=== PATIENT | female | born 1940 | race Caucasian/White ===

== ENCOUNTER → 2016-08-15 | Outpatient (CLI) | payer MEDICARE, OTHER ==
[~2016-08-15] MED LIST: FLUTI110I INH; IBUP200C PO; METO50TA11 PO; PRED-503 PO; THERH PO; VENTAER INH; ZITHTAB PO
[2016-08-15 11:34] LABS: HEMATOCRIT 43.8 % (35.0-46.0); MEAN CELL VOLUME 94.4 FL (80.0-100.0); MEAN CORPUSCULAR HEMOGLOBIN 32.4 PG (27.0-34.0); MEAN CORPUSCULAR HGB CONC 34.3 % (32.0-36.0); PLATELET COUNT 208 TH/MM3 (150-450); RED BLOOD COUNT 4.64 MIL/MM3 (4.00-5.30); RED CELL DISTRIBUTION WIDTH 14.6 % (11.6-17.2); REVIEW FLAG FINAL
[2016-08-15 11:35] LABS: BLOOD, URINE NEG (NEG); GLUCOSE,URINE NEG (NEG); KETONE, URINE NEG (NEG); MUCUS URINE FEW /lpf (OCC); NITRITE,URINE NEG (NEG); PH, URINE 6.5 (5.0-8.5); SQUAMOUS EPITHELIAL CELL URINE 2 /hpf (0-5); URINE COLOR YELLOW (YELLW/STRAW)
[2016-08-15 11:59] LABS: BICARBONATE 30.7 MEQ/L (21.0-32.0)
[2016-08-15 12:00] LABS: POTASSIUM 3.6 MEQ/L (3.5-5.1)
== END ==
LOC: CLAB 11:06
PROVIDERS: ATTEND Internal Medicine Interventional Cardiology
DX: I11.9 Hypertensive heart disease without heart failure (principal); R31.9 Hematuria, unspecified
CPT/HCPCS: 36415; 80048; 81001; 85027

== ENCOUNTER 2016-09-22 06:31 | Day surgery (SDC) | payer MEDICARE, OTHER ==
[~2016-09-22] VITALS: Ht 154.9 cm; Wt 76.5 kg
[~2016-09-22 06:31] MED LIST changes: -IBUP200C PO; -METO50TA11 PO; -THERH PO
[2016-09-22] MEDS ORDERED: SODIUM CHLOR 0.9% 1000 ML INJ 1,000 ML IV SCH ×2 (06:41→09:51)
[2016-09-22] MEDS ORDERED: ASPIRIN 325 MG TAB PO SCH (06:45)
[2016-09-22] MEDS ORDERED: MIDAZOLAM HCL 2 MG/2 ML VIAL IV SCH (06:45)
[2016-09-22] MEDS ORDERED: METO50TA11 PO (07:27)
[2016-09-22 07:29] VITALS: BP 181/96; PULSE 58; RESP 18; TEMP 97.6; O2SAT 93
[2016-09-22] MEDS ORDERED: NS 1000P @30 MLS/HR (KVO) IV SCH (07:30)
[2016-09-22] MEDS ORDERED: HEPARIN-NS/PF INJ 500 ML ONE (08:23)
[2016-09-22] MEDS ORDERED: MIDAZOLAM HCL 2 MG/2 ML VIAL ONE (08:26)
[2016-09-22] MEDS ORDERED: BACITRACIN OINT 0.9 GM PKT TOP ONE (10:00)
[2016-09-22] MEDS ORDERED: SODIUM CHLOR 0.9% 250 ML INJ 250 ML IV PRN (10:00)
[2016-09-22] MEDS ORDERED: MISC INFORMATION XX ONE (10:00)
[2016-09-22] MEDS ORDERED: SODIUM CHLORIDE 0.9% FLUSH 10 ML FLUSH IV FLUSH SCH (10:00)
[2016-09-22] MEDS ORDERED: ATROPINE SULFATE 1 MG/ML VIAL IV PRN (10:00)
[2016-09-22] MEDS ORDERED: IOHEXOL 350 MG/ML 100 ML BTL (for Cath Lab) OTHER ONE (13:44)
--- NOTE | 2016-09-24 11:28 | EKG ---
Date Performed: 09/22/2016 Time Performed: 07:38:16 PTAGE: 76 years EKG: Sinus bradycardia Possible anterior infarct - age undetermined Abnormal ECG PREVIOUS TRACING : 06/26/2016 14.42 DOCTOR: Randell Garrison Interpretating Date/Time 09/24/2016 11:26:00
--- NOTE | 2016-09-25 20:30 | MA ---
cc: ISABELA MATOS M.D. DATE September 22, 2016 PROCEDURE PERFORMED Left heart catheterization. Coronary arteriography. Left ventriculography. Right femoral angiography. Vascade arterial closure right femoral artery. PROCEDURE TECHNIQUE The patient was brought to the cardiac catheterization laboratory following informed consent. Initial thoughts of attempting a right radial approach were aborted due to a poor Lavell test response. The right groin was prepped and draped in usual sterile manner. Following 15 ml of 1% Xylocaine for local anesthesia in the right groin, a 6-[place] short introducer sheath was placed in the right femoral artery via modified Seldinger technique. Through this introducer sheath a 6-[place]an diagnostic catheter system including a JL-4, 3DRC, and straight pigtail were used for left heart study. Multiple projections of left and right coronaries were taken and left ventriculogram was done in the JAIN 32 projection only. At the completion of diagnostic procedure the catheters and introducer were removed and adequate hemostasis was maintained with the use of Vascade device in the right femoral artery. The patient tolerated procedure well. There were no immediate complications. HEMODYNAMIC RESULTS There was no gradient recorded across the aortic valve. Left ventricular end-diastolic pressure is 14 mmHg. For complete hemodynamic details please see accompanying paperwork. ANGIOGRAPHIC FINDINGS Left ventricle. The left ventricle demonstrates normal end systolic and diastolic dimensions. Overall left ventricular contractility is normal. Estimated left ventricular ejection fraction is 55%. No mitral regurgitation is seen. Aortic valve is trileaflet and opens normally. The aortic root and proximal portion of the ascending aorta are normal. LEFT CORONARY ARTERY Left main trunk: Left main trunk arises normally from the left coronary sinus. This is a short, large vessel. Normal. Left anterior descending artery: The LAD is a large-caliber vessel which is moderately tortuous. It gives rise to two major diagonal branches. There are mild luminal irregularities but no significant obstructive disease seen. Diagonal branches are moderate in caliber and normal. Circumflex: Nondominant. The main circumflex gives rise to a high lateral branch and a posterolateral branch. The main circumflex is large in caliber and has mild luminal irregularities. The high lateral branch is moderate to large in caliber and has a 10% stenosis in its mid segment. The post lateral branch is small in caliber and normal. RIGHT CORONARY ARTERY The right coronary artery: Dominant. Right coronary artery is a large-caliber vessel that gives rise to two right ventricular marginal branches, a posterior descending branch and posterior ventricular branch. The right coronary artery and its branches are normal. DIAGNOSES 1. Mild coronary atherosclerosis. 2. Normal left ventricular function. COMMENT/ RECOMMENDATIONS Angiographically, this patient does not demonstrate any hemodynamically significant coronary artery disease to explain her recently abnormal stress test results. She will be treated medically with risk factor modification program. Her blood pressure was mildly elevated on arrival to the cardiac catheterization laboratory and that will be followed closely and medications adjusted appropriately. I will discharge her home today when ambulatory and stable and see her back in the office in a few weeks for followup. MD JOSUE Kumar/AIDA /9:27 AM /8:14 PM MTDJames
[2016-12-16] MEDS ORDERED: THERH PO (09:55)
[2016-12-16] MEDS ORDERED: IBUP200C PO (09:57)
== END 2016-09-22 13:38 | disposition home or self-care (01) ==
LOC: HDOC 06:31 → HDIC 06:32 → HDOC 13:38
PROVIDERS: ATTEND Internal Medicine Interventional Cardiology
DX: I25.10 Atherosclerotic heart disease of native coronary artery without angina pectoris (principal); D15.1 Benign neoplasm of heart; I11.9 Hypertensive heart disease without heart failure; R94.39 Abnormal result of other cardiovascular function study; J44.9 Chronic obstructive pulmonary disease, unspecified; Z72.0 Tobacco use
CPT/HCPCS: 93005; 93458; C1760; C1769; C1893; G0269; J1644; J2250; J3010; Q9967

== ENCOUNTER 2017-03-04 10:26 | Inpatient (IN) | payer MEDICARE, OTHER ==
[~2017-03-04] VITALS: Ht 157.5 cm; Wt 84.5 kg
[2017-03-04] VITALS (15 sets, daily range): BP systolic 115–170; BP diastolic 58–96; PULSE 96–145; RESP 16–24; TEMP 98.1–98.6; O2SAT 87–99
[~2017-03-04 10:26] MED LIST changes: +ALBU0.08 NEB; +FURO1TAB62 PO; -PRED-503 PO; +THERH PO; -VENTAER INH; -ZITHTAB PO
--- NOTE | 2017-03-04 10:55 | PD ---
HPI Chief Complaint: Edema Time Seen by Provider: 10:48 Travel History International Travel<30 days: No Contact w/Intl Traveler<30days: No Traveled to known affect area: No History of Present Illness HPI The patient was seen and examined in the presence of the nurse. This patient complains of increased swelling in her legs. She occasionally is short of breath. She has moderately severe symptoms. Duration 2 weeks. She started on Lasix 2 weeks ago. Having any chest pain. No alleviating factors. She recently had bilateral leg Dopplers negative for DVT. PFSH Past Medical History Arthritis: Yes Asthma: No Autoimmune Disease: No Blood Disorders: No Anxiety: No Depression: No Heart Rhythm Problems: Yes Cancer: Yes (SKIN) Cardiovascular Problems: Yes High Cholesterol: No Chemotherapy: No Chest Pain: No Congestive Heart Failure: No COPD: No Cerebrovascular Accident: No Diabetes: No Diminished Hearing: No Endocrine: No Gastrointestinal Disorders: No GERD: No Glaucoma: Yes (BILAT) Genitourinary: No Headaches: No Hepatitis: No Hiatal Hernia: No Hypertension: No Immune Disorder: No Kidney Stones: No Musculoskeletal: Yes Neurologic: No Psychiatric: No Reproductive: No Respiratory: Yes (COPD) Integumentary: No Migraines: No Myocardial Infarction: No Radiation Therapy: No Renal Failure: No Seizures: No Sickle Cell Disease: No Sleep Apnea: No Thyroid Disease: No Ulcer: No Past Surgical History Abdominal Surgery: Yes (GALL BLADDER, 2 C-SECTIONS, TUBAL LIGATION) AICD: No Appendectomy: Yes Arteriovenous Shunt: No Cardiac Surgery: No Cholecystectomy: Yes Ear Surgery: No Endocrine Surgery: No Eye Surgery: Yes (CATARACTS REMOVED AND LENSE PLACEMENT BILATERAL 2004) Genitourinary Surgery: No Gynecologic Surgery: Yes (SEE ABOVE) Insulin Pump: No Joint Replacement: Yes (R KNEE REPLACEMENT, RIGHT HIP) Oral Surgery: No Pacemaker: No Thoracic Surgery: No Other Surgery: Yes Social History Alcohol Use: Yes (2 DRINKS A DAY) Tobacco Use: Yes (1 pack per day) Substance Use: No Allergies-Medications (Allergen,Severity, Reaction): Coded Allergies: codeine (Unverified Adverse Reaction, Severe, Nausea/Vomiting, 03/04/17) Reported Meds & Prescriptions Reported Meds & Active Scripts Active Albuterol Neb (Albuterol Sulfate) 2.5 Mg/3 Ml Neb 2.5 Mg NEB Q4HR NEB PRN Flovent Hfa 12 GM Inh (Fluticasone Propionate) 110 Mcg/Act Inh 2 Puff INH BID Lasix (Furosemide) 20 Mg Tab 20 Mg PO DAILY Reported Potassium Chloride ER (Potassium Chloride) 20 Meq Tab 20 Meq PO DAILY Therems-H (Multivitamin Hematinic Therapeutic) 1 Tab 1 Tab PO DAILY Review of Systems General / Constitutional: No: Fever Eyes: No: Visual changes HENT: No: Headaches Cardiovascular: Positive: Irregular Rhythm, Tachycardia, Edema, No: Chest Pain or Discomfort Respiratory: Positive: Shortness of Breath Gastrointestinal: No: Abdominal Pain Genitourinary: No: Dysuria Musculoskeletal: Positive: Edema, No: Pain Skin: No Rash Neurologic: No: Weakness Psychiatric: No: Depression Endocrine: No: Polydipsia Hematologic/Lymphatic: No: Easy Bruising Physical Exam Narrative GENERAL: Well-nourished, well-developed patient presented in rapid A. fib SKIN: Focused skin assessment reveals no rash and nodules. Skin is Warm and dry. HEAD: Atraumatic. Normocephalic. EYES: Pupils equal and round. No scleral icterus. No injection or drainage. ENT: No nasal bleeding or discharge. Mucous membranes pink and moist. NECK: Trachea midline. No JVD. CARDIOVASCULAR: Irregularly irregular rhythm. No murmur appreciated. Heart rate 150 RESPIRATORY: No accessory muscle use. Right basilar crackles are prominent, to a much lesser degree some in the left base GASTROINTESTINAL: Abdomen soft, non-tender, nondistended. Hepatic and splenic margins not palpable. MUSCULOSKELETAL: No obvious deformities. No clubbing. No cyanosis. Bilateral symmetric pitting edema of the feet ankles and lower legs to the mid thigh NEUROLOGICAL: Awake and alert. No obvious cranial nerve deficits. Motor grossly within normal limits. Normal speech. PSYCHIATRIC: Appropriate mood and affect; insight and judgment normal. Data Data Last Documented VS Vital Signs Date Time Temp Pulse Resp B/P (MAP) Pulse Ox O2 Delivery O2 Flow Rate FiO2 03/04/17 10:32 98.3 145 18 170/96 (120) 94 Orders Orders Iv Access Insert/Monitor (03/04/17 10:48) Complete Blood Count With Diff (03/04/17 10:48) Comprehensive Metabolic Panel (03/04/17 10:48) B-Type Natriuretic Peptide (03/04/17 10:48) Chest, Single Ap (03/04/17 ) Electric Vehicle Electrician / Telemetry [id number] (03/04/17 10:48) Electrocardiogram (03/04/17 ) Furosemide Inj (Lasix Inj) (03/04/17 11:00) Diltiazem Inj (Cardizem Inj) (03/04/17 11:00) Prothrombin Time / Inr (Pt) (03/04/17 10:55) Act Partial Throm Time (Ptt) (03/04/17 10:55) Diltiazem Inj (Cardizem Inj) (03/04/17 12:30) Admit Order (Ed Use Only) (03/04/17 12:25) Labs Laboratory Tests Test 03/04/17 11:06 White Blood Count 5.7 TH/MM3 Red Blood Count 4.79 MIL/MM3 Hemoglobin 15.3 GM/DL Hematocrit 46.9 % Mean Corpuscular Volume 97.8 FL Mean Corpuscular Hemoglobin 31.9 PG Mean Corpuscular Hemoglobin Concent 32.6 % Red Cell Distribution Width 15.1 % Platelet Count 176 TH/MM3 Mean Platelet Volume 7.9 FL Neutrophils (%) (Auto) 67.6 % Lymphocytes (%) (Auto) 16.5 % Monocytes (%) (Auto) 14.0 % Eosinophils (%) (Auto) 0.4 % Basophils (%) (Auto) 1.5 % Neutrophils # (Auto) 3.9 TH/MM3 Lymphocytes # (Auto) 0.9 TH/MM3 Monocytes # (Auto) 0.8 TH/MM3 Eosinophils # (Auto) 0.0 TH/MM3 Basophils # (Auto) 0.1 TH/MM3 CBC Comment DIFF FINAL Differential Comment Prothrombin Time 13.6 SEC Prothromb Time International Ratio 1.2 RATIO Activated Partial Thromboplast Time 31.6 SEC Blood Urea Nitrogen 15 MG/DL Creatinine 0.72 MG/DL Random Glucose 112 MG/DL Total Protein 6.4 GM/DL Albumin 2.8 GM/DL Calcium Level 8.6 MG/DL Alkaline Phosphatase 97 U/L Aspartate Amino Transf (AST/SGOT) 30 U/L Alanine Aminotransferase (ALT/SGPT) 19 U/L Total Bilirubin 1.4 MG/DL Sodium Level 140 MEQ/L Potassium Level 3.5 MEQ/L Chloride Level 104 MEQ/L Carbon Dioxide Level 30.4 MEQ/L Anion Gap 6 MEQ/L Estimat Glomerular Filtration Rate 78 ML/MIN B-Type Natriuretic Peptide 494 PG/ML MDM Medical Decision Making Medical Screen Exam Complete: Yes Emergency Medical Condition: Yes Medical Record Reviewed: Yes Differential Diagnosis New-onset A. fib, A. fib with RVR, congestive heart failure, pulmonary edema, pleural effusion Narrative Course I have reviewed the patient's electronic medical record. Reviewed her August 2016 heart catheterization which showed extremely minimal CAD IV placed I gave her 20 mg IV Cardizem for rate control Extended cardiac monitoring confirms A. fib with rate around 1 4150 I reviewed her EKG which shows a rapid A. fib at 132 with 1 PVC I gave her 80 mg IV Lasix CBC is normal Metabolic profile is normal LFTs are normal BNP is mildly elevated in the 400 range Coagulation studies are normal I reviewed her chest x-ray which shows right base pleural effusion with some mild pulmonary edema On recheck her heart rate is still 130s I've initiated Cardizem drip for rate control Patient will require admission for telemetry monitoring and IV Cardizem drip for rate control and diuresis I placed a call the hospitalist to discuss Critical Care Narrative Aggregate critical care time was 36 minutes. Time to perform other separately billable procedures was not included in the critical care time. My time did not include minutes spent treating any other patients simultaneously or on activities that did not directly contribute to the patient's treatment. The services I provided to this patient were to treat and/or prevent clinically significant deterioration that could result in: Cardiopulmonary arrest, cardiac arrhythmia, cardiogenic shock, myocardial damage I provided critical care services requiring my management, as noted below: Chart data review, documentation time, medication orders and management, vital sign assessments/reviewing monitor data, ordering and reviewing lab tests, ordering and interpreting/reviewing x-rays and diagnostic studies, care of the patient and discussion of the patient with the admitting physicians. Diagnosis Primary Impression: New onset atrial fibrillation Additional Impressions: Atrial fibrillation with RVR Congestive heart failure with cardiomyopathy Admitting Information Admitting Physician Requests: Admit Josh Ace MD Mar 04, 2017 10:55
[2017-03-04] MEDS ORDERED: POTA-163 PO (10:58)
[2017-03-04] MEDS ORDERED: FUROSEMIDE 100 MG/10 ML VIAL IV PUSH ONE (11:00)
[2017-03-04] MEDS ORDERED: DILTIAZEM HCL 25 MG/5 ML VIAL IV ONE (11:00)
[2017-03-04 11:15] LABS: AUTOMATED NEUTROPHIL # 3.9 TH/MM3 (1.8-7.7); BASOPHIL # 0.1 TH/MM3 (0-0.2); BASOPHIL % 1.5 % (0.0-2.0); EOSINOPHIL % 0.4 % (0.0-4.0); HEMATOCRIT 46.9 % (35.0-46.0); HEMO FLAGS DIFF FINAL; LYMPH % 16.5 % (9.0-44.0); LYMPHOCYTE # 0.9 TH/MM3 (1.0-4.8); MEAN CELL VOLUME 97.8 FL (80.0-100.0); MEAN CORPUSCULAR HEMOGLOBIN 31.9 PG (27.0-34.0); MEAN CORPUSCULAR HGB CONC 32.6 % (32.0-36.0); NEUT % 67.6 % (16.0-70.0); PLATELET COUNT 176 TH/MM3 (150-450); RED BLOOD COUNT 4.79 MIL/MM3 (4.00-5.30); RED CELL DISTRIBUTION WIDTH 15.1 % (11.6-17.2); WHITE BLOOD COUNT 5.7 TH/MM3 (4.0-11.0)
[2017-03-04 11:22] LABS: CHLORIDE 104 MEQ/L (98-107); POTASSIUM 3.5 MEQ/L (3.5-5.1); SODIUM (NA) 140 MEQ/L (136-145)
[2017-03-04 11:26] LABS: ANION GAP 6 MEQ/L (5-15); BICARBONATE 30.4 MEQ/L (21.0-32.0); BLOOD UREA NITROGEN 15 MG/DL (7-18)
[2017-03-04 11:27] LABS: APTT (PATIENT) 31.6 SEC (24.3-30.1); INTERNATIONAL NORMALIZED RATIO 1.2 RATIO; PROTHROMBIN TIME - PATIENT 13.6 SEC (9.8-11.6)
--- NOTE | 2017-03-04 11:27 | RADRPT ---
EXAM DATE/TIME: 03/04/2017 11:13 [facility] COMPARISON: CHEST SINGLE AP, June 26, 2016, 14:31. INDICATIONS : Short of breath, cough MEDICAL HISTORY : Chronic obstructive pulmonary disease. SURGICAL HISTORY : None. ENCOUNTER: Initial ACUITY: 1 day PAIN SCORE: 0/10 LOCATION: Bilateral chest FINDINGS: There is cardiomegaly. A small right effusion is noted tracking into the minor fissure. There is patc hy right basilar airspace disease or atelectasis. Left lung is clear. Degenerative changes of the spi ne. CONCLUSION: Small right effusion and basilar airspace disease. Jorge Carrillo MD on March 04, 2017 at 11:25 Board Certified Radiologist. This report was verified electronically.
[2017-03-04 11:29] LABS: ALT (GPT) 19 U/L (10-53)
[2017-03-04 11:30] LABS: AST (GOT) 30 U/L (15-37); GLOMERULAR FILTRATION RATE 78 ML/MIN (>89)
[2017-03-04 11:31] LABS: TOTAL BILIRUBIN ADULT 1.4 MG/DL (0.2-1.0)
[2017-03-04 11:32] LABS: ALKALINE PHOSPHATASE 97 U/L (45-117)
[2017-03-04] MEDS ORDERED: NALOXONE HCL 0.4 MG/ML AMP IV PRN (12:30)
[2017-03-04] MEDS ORDERED: SODIUM CHLORIDE 0.9% FLUSH 10 ML FLUSH IV FLUSH PRN (12:30)
[2017-03-04] MEDS ORDERED: DILTIAZEM INJ 125 MG in SODIUM CHLORIDE 0.9% INJ 100 ML IV PRN (12:30)
--- NOTE | 2017-03-04 13:17 | HHI.HP ---
[facility]ician KARINA Doyle Admission Diagnosis new onset afib with RVR, CHF exac Diagnoses: Chief Complaint: Edema Travel History International Travel<30 Days: No Contact w/Intl Traveler <30 Da: No Traveled to Known Affected Are: No History of Present Illness This patient is a very pleasant 77-year-old female with a history of hypertension who has had increasing edematous changes of the lower extremities for the last 2 weeks. She has had increased work of breathing and orthopnea. Over the last 24-48 hours she did notice some increasing erythematous changes on her lower extremities and blistered area on her right middle toe. She had no fevers or chills. She notes no trevon chest pain. She has come to the emergency room for further evaluation and did receive some Lasix. At that point she said the swelling went down she could breathe better. On telemetry she has been known to have atrial fibrillation with rapid ventricular response. This is new and the patient has never had knowledge of any arrhythmias. She does follow with her filling technician and recently had an abnormal stress test followed by a cardiac catheterization which was normal. She has been admitted to the hospital for further evaluation of this new arrhythmia Review of Systems Constitutional: DENIES: Diaphoretic episodes, Fatigue, Fever, Weight gain, Weight loss, Chills, Dizziness, Change in appetite, Night Sweats Endocrine: DENIES: Abnorml menstrual pattern, Heat/cold intolerance, Polydipsia , Polyuria, Polyphagia Eyes: DENIES: Blurred vision, Diplopia, Eye inflammation, Eye pain, Vision loss , Photosensitivity, Double Vision Ears, nose, mouth, throat: DENIES: Tinnitus, Hearing loss, Vertigo, Nasal discharge, Oral lesions, Throat pain, Hoarseness, Ear Pain, Running Nose, Epistaxis, Sinus Pain, Toothache, Odynophagia Respiratory: DENIES: Apneas, Cough, Snoring, Wheezing, Hemoptysis, Sputum production, Shortness of breath Cardiovascular: COMPLAINS OF: Lower Extremity Edema, DENIES: Chest pain, Palpitations, Syncope, Dyspnea on Exertion, PND, Orthopnea, Claudication Gastrointestinal: DENIES: Abdominal pain, Black stools, Bloody stools, Constipation, Diarrhea, Nausea, Vomiting, Difficulty Swallowing, Anorexia Genitourinary: DENIES: Abnormal vaginal bleeding, Dysmenorrhea, Dyspareunia, Sexual dysfunction, Urinary frequency, Urinary incontinence, Urgency, Hematuria , Dysuria, Nocturia, Vaginal discharge Musculoskeletal: DENIES: Joint pain, Muscle aches, Stiffness, Joint Swelling, Back pain, Neck pain Integumentary: DENIES: Abnormal pigmentation, Pruritus, Rash, Nail changes, Breast masses, Breast skin changes, Nipple discharge Hematologic/lymphatic: DENIES: Bruising, Lymphadenopathy Immunologic/allergic: DENIES: Eczema, Urticaria Neurologic: DENIES: Abnormal gait, Headache, Localized weakness, Paresthesias, Seizures, Speech Problems, Tremor, Poor Balance Psychiatric: DENIES: Anxiety, Confusion, Mood changes, Depression, Hallucinations, Agitation, Suicidal Ideation, Homicidal Ideation, Delusions Past Family Social History Past Medical History Htn COPD Past Surgical History GB Tubal ligation Reported Medications Reviewed in the EMR Allergies: Coded Allergies: codeine (Unverified Adverse Reaction, Severe, Nausea/Vomiting, 03/04/17) Active Ordered Medications Reviewed in the EMR Family History Mom had heart issues and at 78, brother has diabetes, father's history is unknown Social History Patient smokes half a pack a day, alcohol occasionally, lives with her boyfriend Physical Exam Vital Signs Vital Signs Date Time Temp Pulse Resp B/P (MAP) Pulse Ox O2 Delivery O2 Flow Rate FiO2 03/04/17 10:32 98.3 145 18 170/96 (120) 94 Physical Exam GENERAL: This is a well-nourished, well-developed patient, in no apparent distress. SKIN: No rashes, ecchymoses or lesions. Cool and dry. HEAD: Atraumatic. Normocephalic. No temporal or scalp tenderness. EYES: Pupils equal round and reactive. Extraocular motions intact. No scleral icterus. No injection or drainage. ENT: Nose without bleeding, purulent drainage or septal hematoma. Throat without erythema, tonsillar hypertrophy or exudate. Uvula midline. Airway patent. NECK: Trachea midline. No JVD or lymphadenopathy. Supple, nontender, no meningeal signs. CARDIOVASCULAR: Afib with Rapid ventricular rate without murmurs, gallops, or rubs. RESPIRATORY: Clear to auscultation. Breath sounds equal bilaterally. No wheezes , rales, or rhonchi. GASTROINTESTINAL: Abdomen soft, non-tender, nondistended. No hepato-splenomegaly , or palpable masses. No guarding. MUSCULOSKELETAL: Extremities without clubbing, cyanosis, or edema. No joint tenderness, effusion, or edema noted. No calf tenderness. Negative Homans sign bilaterally. NEUROLOGICAL: Awake and alert. Cranial nerves II through XII intact. Motor and sensory grossly within normal limits. Five out of 5 muscle strength in all muscle groups. Normal speech. Laboratory Laboratory Tests Test 03/04/17 11:06 White Blood Count 5.7 Red Blood Count 4.79 Hemoglobin 15.3 Hematocrit 46.9 Mean Corpuscular Volume 97.8 Mean Corpuscular Hemoglobin 31.9 Mean Corpuscular Hemoglobin Concent 32.6 Red Cell Distribution Width 15.1 Platelet Count 176 Mean Platelet Volume 7.9 Neutrophils (%) (Auto) 67.6 Lymphocytes (%) (Auto) 16.5 Monocytes (%) (Auto) 14.0 Eosinophils (%) (Auto) 0.4 Basophils (%) (Auto) 1.5 Neutrophils # (Auto) 3.9 Lymphocytes # (Auto) 0.9 Monocytes # (Auto) 0.8 Eosinophils # (Auto) 0.0 Basophils # (Auto) 0.1 CBC Comment DIFF FINAL Differential Comment Prothrombin Time 13.6 Prothromb Time International Ratio 1.2 Activated Partial Thromboplast Time 31.6 Blood Urea Nitrogen 15 Creatinine 0.72 Random Glucose 112 Total Protein 6.4 Albumin 2.8 Calcium Level 8.6 Alkaline Phosphatase 97 Aspartate Amino Transf (AST/SGOT) 30 Alanine Aminotransferase (ALT/SGPT) 19 Total Bilirubin 1.4 Sodium Level 140 Potassium Level 3.5 Chloride Level 104 Carbon Dioxide Level 30.4 Anion Gap 6 Estimat Glomerular Filtration Rate 78 B-Type Natriuretic Peptide 494 Thyroid Stimulating Hormone 3rd Gen 3.550 Result Diagram: 03/04/17 1106 03/04/17 1106 Imaging Last Impressions Chest X-Ray 03/04/17 0000 Signed Impressions: Service Date/Time: Saturday, March 04, 2017 11:13 - CONCLUSION: Small right effusion and basilar airspace disease. MD Zeeshan Clark VTE Risk Assessment Zeeshan VTE Risk Assessment: Mod/High Risk (score >= 2) Caprini Risk Assessment Model Point Value = 1 Point Value = 2 Point Value = 3 Point Value = 5 Age 41-60 Minor surgery BMI > 25 kg/m2 Swollen legs Varicose veins or History of unexplained or recurrent spontaneous Oral contraceptives or hormone replacement Sepsis (< 1 month) Serious lung disease, including pneumonia (< 1 month) Abnormal pulmonary function Acute myocardial infarction Congestive heart failure (< 1 month) History of inflammatory bowel disease Medical patient at bed rest Age 61-74 Arthroscopic surgery Major open surgery (> 45 min) Laparoscopic surgery (> 45 min) Malignancy Confined to bed (> 72 hours) Immobilizing plaster cast Central venous access Age >= 75 History of VTE Family history of VTE Factor V Leiden Prothrombin [id number] Lupus anticoagulant Anticardiolipin antibodies Elevated serum homocysteine Heparin-induced thrombocytopenia Other congenital or acquired thrombophilia Stroke (< 1 month) Elective arthroplasty Hip, pelvis, or leg fracture Acute spinal cord injury (< 1 month) Prophylaxis Regimen Total Risk Factor Score Risk Level Prophylaxis Regimen 0-1 Low Early ambulation 2 Moderate Order ONE of the following: *Sequential Compression Device (SCD) *Heparin 5000 units SQ BID 3-4 Higher Order ONE of the following medications: *Heparin 5000 units SQ TID *Enoxaparin/Lovenox 40 mg SQ daily (WT < 150 kg, CrCl > 30 mL/min) *Enoxaparin/Lovenox 30 mg SQ daily (WT < 150 kg, CrCl > 10-29 mL/min) *Enoxaparin/Lovenox 30 mg SQ BID (WT < 150 kg, CrCl > 30 mL/min) AND/OR *Sequential Compression Device (SCD) 5 or more Highest Order ONE of the following medications: *Heparin 5000 units SQ TID (Preferred with Epidurals) *Enoxaparin/Lovenox 40 mg SQ daily (WT < 150 kg, CrCl > 30 mL/min) *Enoxaparin/Lovenox 30 mg SQ daily (WT < 150 kg, CrCl > 10-29 mL/min) *Enoxaparin/Lovenox 30 mg SQ BID (WT < 150 kg, CrCl > 30 mL/min) AND *Sequential Compression Device (SCD) Assessment and Plan Problem List: (1) Atrial fibrillation with RVR ICD Code: I48.91 - Unspecified atrial fibrillation Status: Acute Plan: New onset Rate control, lovenox, IV Cardiazem (2) Fluid overload ICD Code: E87.70 - Fluid overload, unspecified Plan: Diureses Wt daily (3) Cellulitis ICD Code: L03.90 - Cellulitis, unspecified Plan: Of bilateral lower marquis is We'll add Keflex Assessment and Plan Plan of care to be determined by Hospital course Code Status DNR Discussed Condition With Patient, TAVON Moseley Physician Certification 2 Midnight Certification Type: Admission for Inpatient Services Order for Inpatient Services The services are ordered in accordance with Medicare regulations or non- Medicare payer requirements, as applicable. In the case of services not specified as inpatient-only, they are appropriately provided as inpatient services in accordance with the 2-midnight benchmark. Estimated LOS (days): 2 2 days is the estimated time the patient will need to remain in the hospital, assuming treatment plan goals are met and no additional complications. Post-Hospital Plan: Home Batsheva Iglesias MD Mar 04, 2017 13:17
[2017-03-04] MEDS: CEPHALEXIN MONOHYDRATE 500 MG CAP PO SCH ×2 (15:47→21:26)
[2017-03-04] MEDS: ENOXAPARIN SODIUM 80 MG/0.8 ML SYRINGE SQ SCH (15:48)
--- NOTE | 2017-03-04 17:34 | EKG ---
Date Performed: 03/04/2017 Time Performed: 10:53:48 PTAGE: 77 years EKG: ATRIAL FIBRILLATION WITH RAPID VENTRICULAR RESPONSE LOW QRS VOLTAGE IN PRECORDIAL LEADS ANT EROSEPTAL MYOCARDIAL INFARCTION ABNORMAL ECG INTERPRETATION BASED ON A DEFAULT AGE OF 39 YEARS NO PREVIOUS TRACING DOCTOR: Prosper Joseph Interpretating Date/Time 03/04/2017 17:33:15
[2017-03-04] MEDS: RESP: ALBUTEROL 2.5 MG/IPRATROPIUM 0.5 MG NEB (SCH) NEB ×2 (17:45→21:14)
[2017-03-04] MEDS ORDERED: RESP: ALBUTEROL 2.5 MG/IPRATROPIUM 0.5 MG NEB (PRN) NEB (17:45)
--- NOTE | 2017-03-04 18:38 | ECHRPT ---
Indication: ATRIAL FIBRILLATION CONCLUSIONS Normal left ventricular size. Wall thickness is normal. The left ventricular systolic function is mildly reduced with an estimated ejection fraction in the range of 45- 50%. No regional wall motion abnormalities are present. This study was not technically sufficient to allow for evaluation of left ventricular diastolic func tion. The left atrial size is moderately dilated. The right atrial size is ubuf-if-ejtrplnber dilated. There is a 2.4 cm2 mobile clot in the right atrial side closer to the atrial septum.No atrial level shunt is demonstrated by color flow Doppler interrogation. Moderate mitral valve regurgitation. No mitral valve stenosis. Aortic valve sclerosis is present. No aortic valve regurgitation. No aortic valve stenosis. There is mild to moderate tricuspid valve regurgitation. There is estimated moderate pulmonary hypertension present (range 50-60 mmHg). The pulmonary valve is not well visualized. The inferior vena cava (IVC) is normal in size. There is greater than 50% respiratory change in dimension of the inferior vena cava (normal). BP: 138 / 68 HR: 110 Rhythm: Atrial fibrillation MEASUREMENTS (Male / Female) Normal Values Technical Quality:Fair 2D ECHO LV Diastolic Diameter PLAX 5.3 cm 4.2 - 5.9 / 3.9 - 5.3 cm LV Systolic Diameter PLAX 4.2 cm IVS Diastolic Thickness 0.9 cm 0.6 - 1.0 / 0.6 - 0.9 cm LVPW Diastolic Thickness 0.9 cm 0.6 - 1.0 / 0.6 - 0.9 cm LV Relative Wall Thickness 0.3 LVOT Diameter 2.2 cm Aortic Root Diameter 3.0 cm LA Systolic Diameter LX 4.2 cm 3.0 - 4.0 / 2.7 - 3.8 cm LA Volume Index 42.6 cm/m 16 - 28 cm/m M-MODE AV Cusp Separation MM 1.6 cm DOPPLER AV Peak Velocity 140.7 cm/s AV Peak Gradient 7.9 mmHg AV Mean Gradient 4.3 mmHg AV Velocity Time Integral 20.3 cm LVOT Peak Velocity 81.8 cm/s LVOT Peak Gradient 2.7 mmHg LVOT Velocity Time Integral 13.0 cm LVOT Cardiac Index 2757.5 cm/minm AV Area Cont Eq vti 2.4 cm AV Area Cont Eq pk 2.2 cm Mitral E Point Velocity 111.1 cm/s LV E' Lateral Velocity 10.3 cm/s Mitral E to LV E' Lateral Ratio 10.8 LV E' Septal Velocity 6.0 cm/s Mitral E to LV E' Septal Ratio 18.4 TR Peak Velocity 334.0 cm/s TR Peak Gradient 44.6 mmHg PV Peak Velocity 56.4 cm/s PV Peak Gradient 1.3 mmHg FINDINGS LEFT VENTRICLE Normal left ventricular size. Wall thickness is normal. The left ventricular systolic function is mildly reduced with an estimated ejection fraction in the range of 45- 50%. No regional wall motion abnormalities are present. This study was not technically sufficient to allow for evaluation of left ventricular diastolic func tion. RIGHT VENTRICLE Normal right ventricular size and systolic function. LEFT ATRIUM The left atrial size is moderately dilated. RIGHT ATRIUM The right atrial size is yqhq-it-kluvlvvzbg dilated. There is a 2.4 cm2 mobile clot in the right atrial side closer to the atrial septum. ATRIAL SEPTUM No atrial level shunt is demonstrated by color flow Doppler interrogation. AORTA The aortic root and proximal ascending aorta are normal in size on limited imaging. MITRAL VALVE Structurally normal mitral valve. Moderate mitral valve regurgitation. No mitral valve stenosis. AORTIC VALVE Trileaflet aortic valve. Aortic valve sclerosis is present. No aortic valve regurgitation. No aortic valve stenosis. TRICUSPID VALVE Structurally normal tricuspid valve. There is mild to moderate tricuspid valve regurgitation. There is estimated moderate pulmonary hypertension present (range 50-60 mmHg). PULMONARY VALVE The pulmonary valve is not well visualized. VESSELS The inferior vena cava (IVC) is normal in size. There is greater than 50% respiratory change in dimension of the inferior vena cava (normal). PERICARDIUM No pericardial effusion. Michael Aviles MD, FACC, [facility] [place] (Electronically Signed) Final Date:04 March 2017 18:36
[2017-03-04] MEDS ORDERED: SENNOSIDES 8.6 MG TAB PO PRN (21:00)
[2017-03-04] MEDS: SODIUM CHLORIDE 0.9% FLUSH 10 ML FLUSH IV FLUSH SCH (21:26)
[2017-03-05] VITALS (20 sets, daily range): BP systolic 108–137; BP diastolic 51–85; PULSE 88–118; RESP 16–27; TEMP 96.9–99.6; O2SAT 80–100
[2017-03-05] MEDS: ENOXAPARIN SODIUM 80 MG/0.8 ML SYRINGE SQ SCH ×2 (01:19→14:03)
[2017-03-05] MEDS: RESP: ALBUTEROL 2.5 MG/IPRATROPIUM 0.5 MG NEB (SCH) NEB ×4 (03:11→20:56)
[2017-03-05] MEDS: CEPHALEXIN MONOHYDRATE 500 MG CAP PO SCH ×3 (05:52→21:34)
[2017-03-05 06:24] LABS: AUTOMATED NEUTROPHIL # 4.4 TH/MM3 (1.8-7.7); BASOPHIL % 0.6 % (0.0-2.0); EOSINOPHIL # 0.1 TH/MM3 (0-0.4); EOSINOPHIL % 0.8 % (0.0-4.0); HEMO FLAGS DIFF FINAL; LYMPH % 14.4 % (9.0-44.0); LYMPHOCYTE # 0.9 TH/MM3 (1.0-4.8); MEAN CELL VOLUME 97.7 FL (80.0-100.0); MEAN CORPUSCULAR HEMOGLOBIN 31.9 PG (27.0-34.0); MEAN CORPUSCULAR HGB CONC 32.7 % (32.0-36.0); MONO % 14.6 % (0.0-8.0); NEUT % 69.6 % (16.0-70.0); PLATELET COUNT 156 TH/MM3 (150-450); RED BLOOD COUNT 4.61 MIL/MM3 (4.00-5.30); WHITE BLOOD COUNT 6.3 TH/MM3 (4.0-11.0)
[2017-03-05] MEDS: DILTIAZEM-CD 120 MG CAP ER PO SCH (09:50)
[2017-03-05] MEDS: SODIUM CHLORIDE 0.9% FLUSH 10 ML FLUSH IV FLUSH SCH ×2 (09:52→20:41)
--- NOTE | 2017-03-05 11:23 | HHI.PR ---
Subjective Remarks Patient seen in room. Patient with nonsustained V. tach on telemetry in the setting of new onset A. fib. Some hypoxemia overnight in the 80s. Patient has diuresed quite a bit. Her edema is better. She feels well and is out of the bed to chair today. Objective Vitals Vital Signs Date Time Temp Pulse Resp B/P (MAP) Pulse Ox O2 Delivery O2 Flow Rate FiO2 03/05/17 10:48 99 Nasal Cannula 4.00 03/05/17 09:00 75 Nasal Cannula 5.00 90 03/05/17 09:00 108 25 89 03/05/17 08:00 Nasal Cannula 5.00 03/05/17 08:00 106 27 91 03/05/17 05:58 102 22 124/67 (86) 80 03/05/17 05:30 100 21 96 03/05/17 04:47 104 24 122/66 (84) 96 03/05/17 04:30 100 21 93 03/05/17 04:00 99.6 94 20 118/59 (78) 98 03/05/17 04:00 96 03/05/17 04:00 94 20 89 03/05/17 03:47 98 21 118/59 (78) 92 03/05/17 03:00 102 18 97 03/05/17 02:47 96 18 112/54 (73) 98 03/05/17 02:00 88 18 92 03/05/17 01:47 90 19 114/51 (72) 94 03/05/17 01:00 94 19 95 03/05/17 00:47 96 20 114/57 (76) 94 03/05/17 00:00 105 03/05/17 00:00 102 18 97 03/05/17 00:00 99.6 102 18 115/58 (77) 97 03/04/17 23:47 100 21 115/58 (77) 97 03/04/17 23:04 Nasal Cannula 5.00 Humidified 03/04/17 23:00 108 19 87 03/04/17 22:47 104 20 134/62 (86) 90 03/04/17 22:00 106 18 95 03/04/17 21:47 106 23 143/64 (90) 96 03/04/17 21:15 95 Nasal Cannula 2.00 03/04/17 21:00 104 18 97 03/04/17 20:05 102 24 151/79 (103) 03/04/17 20:00 96 19 03/04/17 20:00 98.1 113 22 151/79 (103) 99 03/04/17 20:00 104 03/04/17 20:00 Nasal Cannula 2.00 03/04/17 19:17 108 23 149/87 (107) 03/04/17 19:00 104 21 03/04/17 16:20 98.6 123 19 152/91 (111) 97 03/04/17 15:00 116 03/04/17 14:29 03/04/17 14:16 110 156/86 03/04/17 13:11 130 16 138/68 (91) 95 Room Air I/O 03/04/17 03/04/17 03/04/17 03/05/17 03/05/17 03/05/17 07:00 15:00 23:00 07:00 15:00 23:00 Intake Total 170 ml 240 ml Output Total 1500 ml 2225 ml 500 ml Balance -1500 ml -2055 ml -260 ml Intake Oral 150 ml 240 ml IV Total 20 ml 0 ml Output Urine Total 1500 ml 2225 ml 500 ml # Voids 2 # Bowel Movements 1 Result Diagram: 03/05/17 0550 03/04/17 1106 Imaging Last Impressions Chest X-Ray 03/04/17 0000 Signed Impressions: Service Date/Time: Saturday, March 04, 2017 11:13 - CONCLUSION: Small right effusion and basilar airspace disease. Jorge Carrillo MD Objective Remarks GENERAL: This is a well-nourished, well-developed patient, in no apparent distress. CARDIOVASCULAR: Atrial fibrillation without murmurs, gallops, or rubs. RESPIRATORY: Clear to auscultation. Breath sounds equal bilaterally. No wheezes , rales, or rhonchi. GASTROINTESTINAL: Abdomen soft, non-tender, nondistended. Normal active bowel sounds MUSCULOSKELETAL: Extremities without clubbing, cyanosis, +2 edema NEURO: Alert & Oriented x4 to person, place, time, situation. Moves all ext x4 A/P Problem List: (1) Atrial fibrillation with RVR ICD Code: I48.91 - Unspecified atrial fibrillation Status: Acute Plan: New onset Rate control, lovenox, IV Cardiazem transition to oral Follow up cardiology Correct electrolytes as needed (2) Fluid overload ICD Code: E87.70 - Fluid overload, unspecified Plan: Diureses Echo pending Wt daily (3) Cellulitis ICD Code: L03.90 - Cellulitis, unspecified Plan: Continue Keflex for surveillance of bilateral Batsheva Francis MD Mar 05, 2017 11:23
[2017-03-05 11:34] LABS: POTASSIUM 3.2 MEQ/L (3.5-5.1)
[2017-03-05 11:37] LABS: BICARBONATE 35.3 MEQ/L (21.0-32.0)
--- NOTE | 2017-03-05 16:21 | MB ---
cc: MARIAJOSE DASILVA M.D., MARK B. M.D. Corrected Copy: 03/09/17 DATE OF CONSULTATION: 03/05/2017. HISTORY OF PRESENT ILLNESS: Thank you, Dr. Iglesias, for asking us to see this very pleasant 77-year-old female who presents with a history of hypertension and who has had increasing edematous changes of the lower extremities for the last two weeks. She has been diuresed and her shortness of breath has significantly improved as has her edematous legs. She feels much better. Her chest x-ray showed a small right basilar effusion and basilar airspace disease. Her Electrocardiogram reportedly showed atrial fibrillation with rapid ventricular response on admission. 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 The patient is a DNR so whether this should be operated on or left alone can be decided by her regular physician, Dr. Cosme. PAST MEDICAL HISTORY: 1. COPD. 2. Hypertension. 3. Gallbladder disease. 4. . 5. Tubal ligation. ALLERGIES: 1. CODEINE. FAMILY HISTORY: The family history is positive for the mother having heart issues and at 78. A brother had diabetes. The father's history is unknown. SOCIAL HISTORY: She smoked half-a-pack per day. Alcohol occasionally. Lives with her boyfriend. PHYSICAL EXAMINATION: VITAL SIGNS: On examination, her pulse was 106, respirations 22, blood pressure 108/65. HEAD, EYES, EARS, NOSE, THROAT: Eyes show no xanthelasma. Mouth shows no cyanosis or pallor. NECK: No jugular venous distention. HEART: She had two heart sounds. Soft systolic murmur. CHEST: Scattered wheezes, especially the left upper lobe. ABDOMEN: Abdomen soft. EXTREMITIES: Legs revealed bilateral redness consistent with mild cellulitis. PSYCHIATRIC: No suicidal ideation. Oriented to time and place. ASSESSMENT AND PLAN: 1. 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 Will need further workup of the myxoma as per Dr. Cosme. The patient has an elevated BNP at 495 rate has not been done. The patient is also a DNR so it would be Dr. Cosme's judgment whether to proceed with further workup or leave the myxoma alone. 2. Congestive heart failure. She has significantly improved. This appears to be primarily a right-sided heart failure. There is fluid overload which could be secondary to the atrial fibrillation with rapid ventricular response. We will continue to try to manage the fluid overload and heart rate with Diltiazem. 3. Atrial fibrillation. Will give coumadin anticoagulation or as per Dr. Eagle Cosme, her regular hypo dipper. For now, she is on Lovenox 80 milligrams subcutaneous q. 12 with a normal creatinine. 4. Congestive heart failure. This is being well-treated with the Bumex. She has had significant diuresis. Her edema is improving. She will continue on this. 5. COPD. She continues on albuterol and appears to be improving. 6. Cellulitis of the skin. She is on Keflex and this also appears to be helping at this time. 7. Myxoma. The patient is a DNR. She has had a history of heart catheterization relatively recently. Will leave it up to Dr. Cosme to decide if she needs a transesophageal echocardiogram or whether she can be managed expectantly. Mariajose Dasilva MD, FRCP,FACC SENDY/JCC /2:44 PM /12:02 PM
--- NOTE | 2017-03-05 16:27 | MB ---
cc: MARIAJOSE RINALDI M.D. DATE OF CONSULTATION: 03/05/2017. ADDENDUM TO ORIGINAL DICTATION/REPORT ASSESSMENT AND PLAN: 1. Atrial fibrillation. Will give coumadin anticoagulation or as per Dr. Eagle Cosme, her regular customer servicer. For now, she is on Lovenox 80 milligrams subcutaneous q. 12 with a normal creatinine. 2. Congestive heart failure. This is being well-treated with the Bumex. She has had significant diuresis. Her edema is improving. She will continue on this. 3. COPD. She continues on albuterol and appears to be improving. 4. Cellulitis of the skin. She is on Keflex and this also appears to be helping at this time. 5. Myxoma. The patient is a DNR. She has had a history of heart catheterization relatively recently. Will leave it up to Dr. Cosme to decide if she needs a transesophageal echocardiogram or whether she can be managed expectantly. Mariajose Rinaldi MD, FRCP,FACC EDWARJ/BREE /2:55 PM /4:18 PM
[2017-03-05] MEDS ORDERED: POTASSIUM CHLORIDE 25 MEQ EFFERVESCENT TAB PO ONE (19:15)
[2017-03-05] MEDS: BUMETANIDE INJ 1 MG/4 ML VIAL IV PUSH SCH (19:24)
[2017-03-06] VITALS (12 sets, daily range): BP systolic 107–139; BP diastolic 58–88; PULSE 69–112; RESP 16–24; TEMP 97.1–99.3; O2SAT 93–98
[2017-03-06] MEDS: ENOXAPARIN SODIUM 80 MG/0.8 ML SYRINGE SQ SCH ×2 (01:06→15:15)
[2017-03-06] MEDS: RESP: ALBUTEROL 2.5 MG/IPRATROPIUM 0.5 MG NEB (SCH) NEB ×4 (03:39→21:12)
[2017-03-06] MEDS: CEPHALEXIN MONOHYDRATE 500 MG CAP PO SCH ×3 (05:19→21:21)
[2017-03-06 08:06] LABS: POTASSIUM 3.6 MEQ/L (3.5-5.1)
[2017-03-06 08:08] LABS: BICARBONATE 33.9 MEQ/L (21.0-32.0)
[2017-03-06] MEDS: BUMETANIDE INJ 1 MG/4 ML VIAL IV PUSH SCH ×2 (08:45→18:01)
[2017-03-06] MEDS: DILTIAZEM-CD 120 MG CAP ER PO SCH (08:45)
[2017-03-06] MEDS: SODIUM CHLORIDE 0.9% FLUSH 10 ML FLUSH IV FLUSH SCH ×2 (08:45→21:21)
[2017-03-06] MEDS ORDERED: DILTIAZEM-CD 120 MG CAP ER PO ONE (14:15)
[2017-03-07] VITALS (7 sets, daily range): BP systolic 116–148; BP diastolic 67–88; PULSE 85–100; RESP 18–22; TEMP 97–97.6; O2SAT 95–98
[2017-03-07] MEDS: ENOXAPARIN SODIUM 80 MG/0.8 ML SYRINGE SQ SCH (02:03)
[2017-03-07] MEDS: RESP: ALBUTEROL 2.5 MG/IPRATROPIUM 0.5 MG NEB (SCH) NEB ×3 (03:42→15:10)
[2017-03-07] MEDS: CEPHALEXIN MONOHYDRATE 500 MG CAP PO SCH ×2 (05:01→13:40)
[2017-03-07] MEDS ORDERED: POTASSIUM CHLORIDE 20 MEQ CONTROLLED RELEASE TAB PO ONE (07:15)
--- NOTE | 2017-03-07 07:20 | PD.CARD.PN ---
Subjective Subjective Remarks Feeling better. Edema improved. Still wheezing. No CP. Denies palpitations. Objective Medications Current Medications Medications (Trade) Dose Ordered Sig/Mani Route PRN Reason Start Time Stop Time Status Last Admin Dose Admin Diltiazem HCl 125 mg/Sodium Chloride 125 ml @ 5 mls/hr TITRATE PRN IV Tachycardia 03/04/17 12:30 03/04/17 14:16 Sodium Chloride (NS Flush) 2 ml UNSCH PRN IV FLUSH FLUSH AFTER USING IV ACCESS 03/04/17 12:30 Sodium Chloride (NS Flush) 2 ml BID IV FLUSH 03/04/17 21:00 03/06/17 21:21 Naloxone HCl (Narcan Inj) 0.4 mg UNSCH PRN IV SEE LABEL COMMENTS 03/04/17 12:30 Sennosides (Senokot) 17.2 mg Q12HR PRN PO MODERATE - SEVERE CONSTIPATION 03/04/17 21:00 Cephalexin Monohydrate (Keflex) 500 mg Q8HR PO 03/04/17 14:00 03/07/17 05:01 Albuterol/ Ipratropium (Duoneb Neb) 1 ampule Q6HR NEB NEB 03/04/17 17:45 03/07/17 03:42 Albuterol/ Ipratropium (Duoneb Neb) 1 ampule Q2HR NEB PRN NEB SOB/WHEEZING 03/04/17 17:45 Diltiazem HCl (Cardizem Cd) 240 mg DAILY PO 03/07/17 09:00 Apixaban (Eliquis) 5 mg BID PO 03/07/17 09:00 UNV Bumetanide (Bumetanide) 1 mg DAILY PO 03/07/17 09:00 UNV Potassium Chloride (KCl) 40 meq ONCE ONCE PO 03/07/17 07:15 03/07/17 07:16 UNV Vital Signs / I&O Vital Signs Date Time Temp Pulse Resp B/P (MAP) Pulse Ox O2 Delivery O2 Flow Rate FiO2 03/07/17 04:00 97.2 97 20 130/74 (92) 96 03/07/17 00:00 97.5 100 18 123/88 (100) 98 03/06/17 23:51 96 03/06/17 21:12 95 Nasal Cannula 3.00 03/06/17 21:07 Nasal Cannula 3.00 90 9/4/17 20:00 97.7 69 18 125/88 (100) 98 03/06/17 16:00 97.3 111 20 120/77 (91) 93 03/06/17 15:50 96 03/06/17 12:00 97.1 107 20 125/64 (84) 94 03/06/17 10:26 97 Nasal Cannula 3.00 03/06/17 08:46 94 Nasal Cannula 3.00 03/06/17 08:46 103 03/06/17 08:00 99.3 109 24 139/78 (98) 94 I/O 03/06/17 03/06/17 03/06/17 03/07/17 03/07/17 03/07/17 07:00 15:00 23:00 07:00 15:00 23:00 Intake Total 690 ml 120 ml Output Total 500 ml Balance -500 ml 690 ml 120 ml Intake Oral 690 ml 120 ml Output Urine Total 500 ml # Voids 7 Physical Exam VSS, afeb. No JVD Lungs: Decreased BS and scattered exp. wheezes. Heart: Irreg. S1, S2, Ext: No cyanosis. Trace pretibial pitting edema Neuro: Non-focal. Laboratory Laboratory Tests Test 03/06/17 07:50 Blood Urea Nitrogen 16 MG/DL Creatinine 0.59 MG/DL Random Glucose 94 MG/DL Calcium Level 9.2 MG/DL Sodium Level 144 MEQ/L Potassium Level 3.6 MEQ/L Chloride Level 104 MEQ/L Carbon Dioxide Level 33.9 MEQ/L Anion Gap 6 MEQ/L Estimat Glomerular Filtration Rate 99 ML/MIN Assessment and Plan Problem List: (1) Atrial fibrillation with RVR ICD Codes: I48.91 - Unspecified atrial fibrillation Status: Acute Plan: Onset time uncertain, probably recent. Rate controlled. (2) Atrial myxoma ICD Codes: D15.1 - Benign neoplasm of heart Plan: Have been following this. Size increase since last echo in July 2016 from 1.5 cm to 2,4 cm. (3) Tobacco dependence ICD Codes: F17.200 - Nicotine dependence, unspecified, uncomplicated (4) Acute diastolic (congestive) heart failure ICD Codes: I50.31 - Acute diastolic (congestive) heart failure (5) Hypertension ICD Codes: I10 - Essential (primary) hypertension Status: Acute (6) COPD exacerbation ICD Codes: J44.1 - Chronic obstructive pulmonary disease with (acute) exacerbation Status: Acute (7) Mitral regurgitation ICD Codes: I34.0 - Nonrheumatic mitral (valve) insufficiency Assessment and Plan CV stable. Change Lovenox over to Eliquis 5 mg PO BID. Change IV Bumex to Bumex 1 mg PO daily. Replace potassium to 4.0. Increase activity as tolerates. Smoking cessation counselling. OK to discharge from cardiac standpoint. F/U with me next week in the office to discuss further plans and her wishes for treatment going forward. Code Status DNR Discussed Condition With Discussed with patient. Eagle Cosme MD Mar 07, 2017 07:20
[2017-03-07] MEDS: SODIUM CHLORIDE 0.9% FLUSH 10 ML FLUSH IV FLUSH SCH (08:11)
[2017-03-07] MEDS ORDERED: APIXABAN 5 MG TABLET PO SCH (09:00)
[2017-03-07] MEDS ORDERED: BUMETANIDE 1 MG TAB PO SCH (09:00)
[2017-03-07] MEDS ORDERED: DILTIAZEM-CD 240 MG CAP ER PO SCH (09:00)
[2017-03-07] MEDS ORDERED: CEPH500C PO (10:30)
[2017-03-07] MEDS ORDERED: CARD240C6 PO (10:30)
[2017-03-07] MEDS ORDERED: APIX5TAB PO (10:30)
[2017-03-07] MEDS ORDERED: BUME1TAB PO (10:30)
--- NOTE | 2017-03-07 10:30 | HHI.DCPOC ---
Discharge Care Plan Diagnosis: (1) COPD exacerbation (2) Atrial myxoma (3) Hypertension (4) Acute diastolic (congestive) heart failure Goals to Promote Your Health * To prevent worsening of your condition and complications * To maintain your health at the optimal level Directions to Meet Your Goals Take your medications as prescribed Follow your dietary instruction Follow activity as directed Keep your appointments as scheduled Take your immunizations and boosters as scheduled If your symptoms worsen call your PCP, if no PCP go to Urgent Care Center or Emergency Room Smoking is Dangerous to Your Health. Avoid second hand smoke Call the 24-hour hour crisis hotline for domestic abuse at Batsheva Iglesias MD Mar 07, 2017 10:30
--- NOTE | 2017-03-07 10:32 | HHI.DS ---
Discharge Summary Admission Date Mar 04, 2017 at 12:27 Discharge Date: Mar 07, 2017 Admitting Diagnosis new onset afib with RVR, CHF exac (1) Atrial fibrillation with RVR ICD Code: I48.91 - Unspecified atrial fibrillation Status: Acute (2) Fluid overload ICD Code: E87.70 - Fluid overload, unspecified (3) Cellulitis ICD Code: L03.90 - Cellulitis, unspecified Procedures none Brief History - From Admission This patient is a very pleasant 77-year-old female with a history of hypertension who has had increasing edematous changes of the lower extremities for the last 2 weeks. She has had increased work of breathing and orthopnea. Over the last 24-48 hours she did notice some increasing erythematous changes on her lower extremities and blistered area on her right middle toe. She had no fevers or chills. She notes no trevon chest pain. She has come to the emergency room for further evaluation and did receive some Lasix. At that point she said the swelling went down she could breathe better. On telemetry she has been known to have atrial fibrillation with rapid ventricular response. This is new and the patient has never had knowledge of any arrhythmias. She does follow with her fast food cashier and recently had an abnormal stress test followed by a cardiac catheterization which was normal. She has been admitted to the hospital for further evaluation of this new arrhythmia CBC/BMP: 03/05/17 0550 03/06/17 0750 Significant Findings Laboratory Tests Test 03/04/17 11:06 03/05/17 05:50 03/06/17 07:50 Hematocrit 46.9 % (35.0-46.0) Monocytes (%) (Auto) 14.0 % (0.0-8.0) 14.6 % (0.0-8.0) Lymphocytes # (Auto) 0.9 TH/MM3 (1.0-4.8) 0.9 TH/MM3 (1.0-4.8) Prothrombin Time 13.6 SEC (9.8-11.6) Activated Partial Thromboplast Time 31.6 SEC (24.3-30.1) Random Glucose 112 MG/DL (74-106) Albumin 2.8 GM/DL (3.4-5.0) Total Bilirubin 1.4 MG/DL (0.2-1.0) Estimat Glomerular Filtration Rate 78 ML/MIN (>89) B-Type Natriuretic Peptide 494 PG/ML (0-100) Potassium Level 3.2 MEQ/L (3.5-5.1) Carbon Dioxide Level 35.3 MEQ/L (21.0-32.0) 33.9 MEQ/L (21.0-32.0) PE at Discharge GENERAL: This is a well-nourished, well-developed patient, in no apparent distress. CARDIOVASCULAR: Atrial fibrillation without murmurs, gallops, or rubs. RESPIRATORY: Clear to auscultation. Breath sounds equal bilaterally. No wheezes , rales, or rhonchi. GASTROINTESTINAL: Abdomen soft, non-tender, nondistended. Normal active bowel sounds MUSCULOSKELETAL: Extremities without clubbing, cyanosis, +2 edema NEURO: Alert & Oriented x4 to person, place, time, situation. Moves all ext x4 Pt update on day of discharge Patient seen today in follow-up for right sided heart failure exacerbation. Overall improved. Heart rate is better. Still in A. fib with rate is controlled on Cardizem. Patient tolerating Eliquis Bumex without difficulty. Discharge plans discussed with patient. Hospital Course Patient is a very pleasant 77-year-old female with new onset of atrial fibrillation with resultant diastolic heart failure. Patient did have a medication adjustment with diuresis and anticoagulation. Her lecture lites were corrected. She had some evidence of cellulitis in the lower extremities for which Keflex was prescribed an improvement was noted. She was seen by fast food cashier. Her echocardiogram did show evidence of atrial myxoma which will be followed by her fast food cashier as an outpatient. Pt Condition on Discharge: Good Discharge Disposition: Discharge Home Discharge Time: > 30 minutes Discharge Instructions DIET: Follow Instructions for: Heart Healthy Diet Activities you can perform: Regular-No Restrictions Follow up Referrals: Cardiology - 1 Week New Medications: Apixaban (Eliquis) 5 Mg Tab 5 MG PO BID for afib, #60 TAB Bumetanide (Bumetanide) 1 Mg Tab 1 MG PO DAILY for chf, #31 TAB Cephalexin (Cephalexin) 500 Mg Cap 500 MG PO Q8HR for Infection, #12 CAP Diltiazem CD 24 HR (Cardizem CD 24 HR) 240 Mg Caper 240 MG PO DAILY for afib, #31 CAP Continued Medications: Albuterol Neb (Albuterol Neb) 2.5 Mg/3 Ml Neb 2.5 MG NEB Q4HR NEB PRN for SHORTNESS OF BREATH, #60 NEBULE 1 Refill Fluticasone 12 GM Inh (Flovent Hfa 12 GM Inh) 110 Mcg/Act Inh 2 PUFF INH BID for Asthma Management, #1 INHALER 3 Refills Multivitamin-Hematinic (Therems-H) 1 Tab 1 TAB PO DAILY for Nutritional Supplement, TAB 0 Refills Potassium Chloride ER (Potassium Chloride ER) 20 Meq Tab 20 MEQ PO DAILY for Electrolyte Replacement, #30 TAB 0 Refills Discontinued Medications: Furosemide (Lasix) 20 Mg Tab 20 MG PO DAILY, #30 TAB 1 Refill Batsheva Iglesias MD Mar 07, 2017 10:32
[2017-03-07] MEDS ORDERED: POTASSIUM CHLORIDE 20 MEQ PWD PACKET PO ONE (11:00)
[2017-03-07 11:26] LABS: POTASSIUM 3.2 MEQ/L (3.5-5.1)
[2017-03-07 11:29] LABS: BICARBONATE 36.7 MEQ/L (21.0-32.0)
[2017-03-07 12:23] LABS: MAGNESIUM 1.7 MG/DL (1.5-2.5)
[2017-03-07] MEDS ORDERED: MAGNESIUM OXIDE 400 MG TAB PO ONE (13:00)
--- NOTE | 2017-03-07 15:30 | HHI.FF ---
Face to Face Verification Diagnosis: (1) Acute diastolic (congestive) heart failure (2) Atrial fibrillation with RVR Home Health Nursing Order: Medical education Signs/symptoms of disease process CHF education Oxygen administration education Nursing assessment with vital signs I have seen patient Suma Steele on 03/07/17. My clinical findings support the need for the requested home health care services because: Patient has SOB I certify that my clinical findings support that this patient is homebound because: Unsafe to leave home unassisted (desaturates on exertion) Vero Braun Mar 07, 2017 15:30
[2017-03-07] MEDS ORDERED: OXYGENDME NAS.CANULA (15:57)
[2017-03-08] MEDS ORDERED: POTASSIUM CHLORIDE 20 MEQ CONTROLLED RELEASE TAB PO SCH (09:00)
--- NOTE | 2017-03-09 13:09 | HHI.FF ---
Face to Face Verification Diagnosis: (1) Acute diastolic (congestive) heart failure Home Health Nursing Order: Medical education Signs/symptoms of disease process CHF education Oxygen administration education Nursing assessment with vital signs I have seen patient Suma Steele on 03/09/17. My clinical findings support the need for the requested home health care services because: Ltd mobility - disease progression Patient has SOB Deconditioned w/ increased weakness Limited ability to care for self High risk of falls I certify that my clinical findings support that this patient is homebound because: Unsteady gait/balance Unsafe to leave home unassisted Unable to use public transportation Poor cardiac reserve On Behalf of Dr. Iglesias (attending at last hospitalization) and [facility] ( hospitalist group): Cipriano Rico MD Mar 09, 2017 13:09
== END 2017-03-07 19:30 | disposition home or self-care (01) | DRG 308 ==
LOC: PHED 10:26 → PHEDA 12:27 → PHICU 14:00 → PH3A 03-05 16:19
PROVIDERS: ADMIT Family Medicine; ATTEND Family Medicine
DX: I48.91 Unspecified atrial fibrillation (principal); I50.31 Acute diastolic (congestive) heart failure; I47.2 Ventricular tachycardia; L03.115 Cellulitis of right lower limb; I42.9 Cardiomyopathy, unspecified; L03.116 Cellulitis of left lower limb; J44.1 Chronic obstructive pulmonary disease with (acute) exacerbation; I11.0 Hypertensive heart disease with heart failure; F17.210 Nicotine dependence, cigarettes, uncomplicated; Z96.651 Presence of right artificial knee joint; Z96.641 Presence of right artificial hip joint; M19.90 Unspecified osteoarthritis, unspecified site; Z66 Do not resuscitate; D15.1 Benign neoplasm of heart; I34.0 Nonrheumatic mitral (valve) insufficiency; R09.02 Hypoxemia; Z85.828 Personal history of other malignant neoplasm of skin
CPT/HCPCS: 71010; 80048; 80053; 83735; 83880; 84443; 85025; 85610; 85730; 93005; 93306; 94620; 94640; 94664; 96374; 96375; J1650; J1940

== ENCOUNTER 2017-04-06 05:53 | Day surgery (SDC) | payer MEDICARE, OTHER ==
[~2017-04-06 05:53] MED LIST changes: +APIX5TAB PO; +BUME1TAB PO; +CARD240C6 PO; +CEPH500C PO; -FURO1TAB62 PO; +OXYGENDME NAS.CANULA; +POTA-163 PO
[2017-04-06] MEDS ORDERED: INSULIN HUMAN REGULAR 1,000 UNITS/10 ML VIAL SQ PRN (06:15)
[2017-04-06] MEDS ORDERED: SODIUM CHLORID 0.9% 500 ML IV PRN (06:15)
[2017-04-06] MEDS ORDERED: LACTATED RINGER'S 1000 ML IV PRN (06:15)
[2017-04-06] MEDS ORDERED: POVIDONE IODINE 5% (ANTISEPSIS KIT) 4 APPLICATIONS EACH NARE PRN (06:15)
[2017-04-06] MEDS ORDERED: CHLORHEXIDINE GLUCONATE 2 % 1 PACK (2 CLOTHS) TOPICAL PRN (06:15)
[2017-04-06] MEDS ORDERED: METOPROLOL TARTRATE 25 MG TAB PO PRN (06:15)
[2017-04-06] MEDS ORDERED: ALBUAER3 INH (06:50)
[2017-04-06] MEDS ORDERED: AMIO200T PO (06:50)
[2017-04-06] MEDS ORDERED: ATEN25TA PO (06:50)
[2017-04-06] MEDS ORDERED: SPIR25TA PO (06:50)
[2017-04-06] MEDS ORDERED: MISCELLANEOUS NURSING INFORMATION XX PRN (09:15)
[2017-04-06] MEDS ORDERED: PROPOFOL 200 MG/20 ML AMP IV ONE (12:00)
--- NOTE | 2017-04-06 13:19 | RADRPT ---
EXAM DATE/TIME: 04/06/2017 12:51 [facility] COMPARISON: No previous studies available for comparison. INDICATIONS : Preop atrial myexoma excision. MEDICAL HISTORY : Chronic obstructive pulmonary disease. Congestive heart failure. Hypertension. Emphysema. Arth ritis. Carcinoma, skin. SURGICAL HISTORY : Cholecystectomy. section. Tubal ligation. Cataract removal. Appendectomy. Right knee repla cement. Right hip replacement. ENCOUNTER: Initial ACUITY: 1 day PAIN SCORE: 1/10 LOCATION: Bilateral neck PEAK SYSTOLIC VELOCITIES (cm/sec): ICA/CCA RATIO: Right: 2.2 Left: 2.0 ICA: Right: 161 Left: 135 CCA: Right: 73 Left: 68 ECA: Right: 85 Left: 60 VERTEBRAL: Right: 55 antegrade Left: 55 antegrade Elevated flow velocities and ICA/CCA ratios have been found to correlate with increased degrees of vessel stenosis, calculated as percentage of diameter relative to a normal segment of distal ICA/CCA FINDINGS: RIGHT CAROTID: No significant stenosis is visualized. Mild plaque. The waveforms are within normal limits. LEFT CAROTID: No significant stenosis is visualized. Mild plaque. The waveforms are within normal limits. VERTEBRAL ARTERIES: Antegrade flow is seen in both vertebral arteries. MISCELLANEOUS: None. CONCLUSION: There is a 50-69% stenosis within the both internal carotid arteries. Mukesh Burroughs MD on April 06, 2017 at 13:16 Board Certified Radiologist. This report was verified electronically.
--- NOTE | 2017-04-06 13:56 | RADRPT ---
EXAM DATE/TIME: 04/06/2017 13:44 [facility] COMPARISON: CHEST SINGLE AP, March 04, 2017, 11:13. INDICATIONS : Evaluate for pneumonia, pneumothorax, or communicable disease. Pre op for cardiac surgery. MEDICAL HISTORY : Hypertension. Chronic obstructive pulmonary disease. Emphysema. Atrial fibrillation. Skin cancer. SURGICAL HISTORY : Cholecystectomy. section. ENCOUNTER: Initial ACUITY: 1 day PAIN SCORE: 0/10 LOCATION: Bilateral chest FINDINGS: PA and lateral views of the chest demonstrates hyperinflation which can be seen with CO PD. No infiltrates are seen. Cardiomegaly. The mediastinal contours are unremarkable. Osseous struc tures are intact. CONCLUSION: Hyperinflation which can be seen with COPD. cardiomegaly. No evidence for an in filtrate. Mukesh Burroughs MD on April 06, 2017 at 13:51 Board Certified Radiologist. This report was verified electronically.
--- NOTE | 2017-04-06 14:23 | EKG ---
Date Performed: 04/06/2017 Time Performed: 08:49:24 PTAGE: 77 years EKG: Sinus rhythm with PAC(s). Poor R wave progression - probable normal variant Septal T wave changes are nonspecific Low QRS voltages in precordial leads Borderline ECG PREVIOUS TRACING : 04/06/2017 06.37 Since prior tracing, sinus rhythm has replaced atrial fibri llation. DOCTOR: Lester Morrison Interpretating Date/Time 04/06/2017 14:23:12
--- NOTE | 2017-04-06 14:23 | EKG ---
Date Performed: 04/06/2017 Time Performed: 06:37:42 PTAGE: 77 years EKG: Atrial fibrillation. Poor R wave progression - probable normal variant Low QRS voltages in precordial leads Abnormal ECG PREVIOUS TRACING : 03/04/2017 10.53 Since prior tracing, ventricular response atrial fibrillati on is slower. DOCTOR: Lester Morrison Interpretating Date/Time 04/06/2017 14:22:27
[2017-04-06] MEDS ORDERED: ALBUTEROL SULFATE 90 MCG/ACT HFA 18 GM INHALER INH PRN (14:30)
[2017-04-06 15:16] LABS: AUTOMATED NEUTROPHIL # 3.9 TH/MM3 (1.8-7.7); BASOPHIL % 0.5 % (0.0-2.0); EOSINOPHIL # 0.1 TH/MM3 (0-0.4); EOSINOPHIL % 1.4 % (0.0-4.0); HEMATOCRIT 42.6 % (35.0-46.0); HEMO FLAGS DIFF FINAL; LYMPH % 22.4 % (9.0-44.0); LYMPHOCYTE # 1.4 TH/MM3 (1.0-4.8); MEAN CORPUSCULAR HEMOGLOBIN 32.3 PG (27.0-34.0); MEAN CORPUSCULAR HGB CONC 33.6 % (32.0-36.0); MONO % 13.8 % (0.0-8.0); NEUT % 61.9 % (16.0-70.0); PLATELET COUNT 182 TH/MM3 (150-450); RED BLOOD COUNT 4.44 MIL/MM3 (4.00-5.30); RED CELL DISTRIBUTION WIDTH 14.4 % (11.6-17.2); WHITE BLOOD COUNT 6.4 TH/MM3 (4.0-11.0)
[2017-04-06 15:19] LABS: BLOOD, URINE NEG (NEG); COMMENT (UR) CULT NOT INDICATED; CULTURE IF INDICATED CULT NOT INDICATED; GLUCOSE,URINE NEG (NEG); KETONE, URINE NEG (NEG); NITRITE,URINE NEG (NEG); URINE COLOR YELLOW (YELLW/STRAW)
[2017-04-06 15:32] LABS: PROTHROMBIN TIME - PATIENT 11.4 SEC (9.8-11.6)
[2017-04-06 15:37] LABS: ALT (GPT) 22 U/L (10-53); ANION GAP 7 MEQ/L (5-15); AST (GOT) 25 U/L (15-37); BLOOD UREA NITROGEN 28 MG/DL (7-18); CHLORIDE 103 MEQ/L (98-107); GLOMERULAR FILTRATION RATE 66 ML/MIN (>89); POTASSIUM 3.7 MEQ/L (3.5-5.1); SODIUM (NA) 141 MEQ/L (136-145)
[2017-04-06 15:40] LABS: ALKALINE PHOSPHATASE 90 U/L (45-117); TOTAL BILIRUBIN ADULT 0.6 MG/DL (0.2-1.0)
[2017-04-06 17:09] LABS: HEMOGLOBIN A1a 1.2 %; HEMOGLOBIN A1b 0.8 %; HEMOGLOBIN Ao 84.4 %; HEMOGLOBIN F 1.9 %; HEMOGLOBIN LA1C 2.2 %; HEMOGLOBIN P3 5.1 %
--- NOTE | 2017-04-06 19:26 | MB ---
cc: ISABELA COSME M.D.,HELENA PARK MD DATE OF CONSULTATION: 04/06/2017 DATE OF : 1940 HISTORY OF PRESENT ILLNESS A 77-year-old patient of Dr. Helena Hernandez and Dr. Cosme who was recently in the hospital in March with a history of hypertension, came in because of lower extremity edema for about two weeks, shortness of breath and orthopnea. She also noticed some blistering of her right foot. She was placed on some Lasix, swelling went down and she improved. She was also found to have some atrial fibrillation with RVR. No prior history of arrhythmias. She has a saddle cutter, Dr. Cosme. She underwent cardiac cath on September 22, 2016 with nonobstructive coronary disease. Other reason for admission was COPD with exacerbation, acute diastolic heart failure and nicotine dependence. They also found an EF of 45-50% on 03/04/2017, left atrial moderately dilated, right atrial size moderately dilated. There was a 2.4 cm mobile clot in the right atrium closer to the atrial septum. There was no atrial level shunt. Some mild mitral valve regurgitation. No mitral stenosis. No aortic valve regurgitation. No aortic valve stenosis. Some mild to moderate tricuspid regurgitation. Pulmonary pressures ranged 50-60. Inferior vena cava was normal in size. We were consulted because of the right atrial myxoma and also possible maze procedure. She underwent MARCIE and cardioversion. PAST MEDICAL HISTORY 1. COPD. 2. Tobacco abuse. 3. 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 4. Palpitations. 5. Hypertension. 6. Peripheral neuropathy. 7. She uses home O2 at 2 liters for chronic hypoxemia. 8. Nonobstructive coronary disease by cardiac cath. PAST SURGICAL HISTORY 1. Cholecystectomy. 2. . 3. Tubal ligation. ALLERGIES SHE IS ALLERGIC TO CODEINE. MEDICATIONS Home meds include: 1. O2 at 2 liters. 2. Albuterol. 3. Eliquis 5 mg b.i.d. 4. Amiodarone 200. 5. Atenolol 25. 6. Diltiazem 240, daily. 7. Spironolactone. 8. Potassium 9. Bumex. FAMILY HISTORY Mother had some heart condition, at 78. SOCIAL HISTORY The patient lives with her significant other, smokes a half pack per day. Occasional alcohol. She has been smoking for a year and a half. She is down to a half cigarette per day. Drinks one shot of vodka per day. Has two children. . REVIEW OF SYSTEMS GENERAL: No night sweats, fever, heat or cold intolerance. SKIN: No psoriasis, itching or hives. HEENT: No blurred vision or hearing loss. RESPIRATORY: As above in the HPI. CARDIOVASCULAR: Lower extremity edema which has improved with the Bumex. GASTROINTESTINAL: No diarrhea or vomiting. GENITOURINARY: No burning, frequency, urgency. KETTLE WORKER: No history of TIA, CVA, seizure disorder. ENDOCRINE: No diabetes or hypothyroidism. PHYSICAL EXAMINATION VITAL SIGNS: Blood pressure 120/70, heart rate 85, temperature 97, O2 sat 98 on room air. GENERAL: The patient is awake and alert, in no acute distress. HEENT: Head is normocephalic, atraumatic. Pupils equal and reactive. Oral mucosa pink and moist. NECK: Supple. No JVD. HEART: Heart sounds S1, S2, regular rate and rhythm. No rubs, murmurs or gallops. LUNGS: Diminished in the bases, otherwise clear to auscultation. No wheezes, rales or rhonchi. ABDOMEN: Soft, nontender. No masses or organomegaly. EXTREMITIES: +2 edema with some chronic venous stasis. Good distal pulses. LABORATORY DATA Hemoglobin 14, hematocrit 42, white cell count 6.4, platelet count 182. Sodium 141, potassium 3.7, BUN 28, creatinine 0.84, hemoglobin A1c 5.3, AST 25, ALT 22. INR 1.0. Urinalysis is unremarkable. MRSA is pending. Type and screen was done and she is A-negative. IMAGING Carotid ultrasound: 50-69% stenosis within both internal carotid arteries which need to be followed up as an outpatient by Dr. Soares of vascular surgery. Chest x-ray did show hyperinflation, seen with COPD. IMPRESSION This is a 77-year female with a right atrial myxoma. Will need to have excision and maze procedure. The procedures, alternatives and risks have been discussed with Dr. Moraes. She is agreeable to proceed. Will proceed with surgery on 04/18/2017. Will await her PFTs. Dictated by: JANEL Ibarra Marielena MD LEW Camilo/LESLIE /5:59 PM /9:15 AM
[2017-04-07] MEDS ORDERED: AMIODARONE 200 MG TAB PO SCH (09:00)
[2017-04-07] MEDS ORDERED: SPIRONOLACTONE 25 MG TAB PO SCH (09:00)
[2017-04-07] MEDS ORDERED: ATENOLOL 25 MG TAB PO SCH (09:00)
[2017-04-07] MEDS ORDERED: BUMETANIDE 1 MG TAB PO SCH (09:00)
--- NOTE | 2017-04-07 12:16 | CF ---
cc: ISABELA MATOS M.D. DATE: 04/06/2017 PROCEDURE 1. Transesophageal echocardiogram. 2. DC cardioversion. ANESTHESIA The patient underwent sedation by the anesthesiologist with Diprivan during the procedure. COMPLICATIONS None. ESTIMATED BLOOD LOSS None. PROCEDURE INDICATIONS Persistent atrial fibrillation and right atrial myxoma. PROCEDURE TECHNIQUE The patient was brought to the outpatient diagnostic unit and following informed consent underwent sedation and transesophageal echocardiography with 2-dimensional echo, Doppler and color flow mapping. Following imaging the patient underwent DC cardioversion. The patient initially had a synchronized cardioversion attempt at 200 joules. She maintained sinus rhythm only briefly. A repeat DC cardioversion at 300 joules was successful and had long-lasting sinus rhythm at the time of discharge. A follow-up EKG was performed to document this. After successful cardioversion final imaging was performed and the probe was removed. The patient was recovered without any complications. FINDINGS 1. The left ventricle demonstrates mild concentric hypertrophy with preserved chamber size and systolic function. Ejection fraction 60-65%. 2. The right Ventricle has normal chamber size and function. 3. There is mild biatrial enlargement. 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 The main atrial septum is also aneurysmal and mobile. No shunting of blood is detected by Doppler. There is a 1.9 x 1.9 cm mobile mass noted that appears to be attached to the atrial septum just above the level of the tricuspid valve. This finding is most consistent with atrial myxoma. 4. The aortic valve is a sclerotic trileaflet valve. No aortic stenosis or insufficiency. The aortic root and proximal portion of the ascending aorta are normal. 5. The mitral valve is structurally normal. No mitral stenosis. Trace mitral regurgitation. 6. The tricuspid valve and pulmonic valve are structurally normal. There is trace tricuspid regurgitation with normal pulmonic flow. 7. The pericardium is normal. There is no pericardial effusion. The right atrial mass as noted above. No other intracardiac masses or thrombi identified. The descending thoracic aorta has mild atherosclerotic changes but no aneurysm or obstructive plaquing noted. SUMMARY 1. Mild LVH with preserved left ventricular size and function. 2. 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 3. Atrial septal aneurysm. 4. Suspected right atrial myxoma, approximately 2 cm in diameter. 5. Successful DC cardioversion from atrial fibrillation to sinus rhythm. MD JOSUE Kumar/LESLIE /9:15 AM /11:54 AM
--- NOTE | 2017-04-10 11:06 | RSPPFT ---
DATE OF PROCEDURE: 04/06/17 COMMENTS: The forced vital capacity, FEV1 and FEF 25-75 are all markedly reduced. The FEV1/FVC ratio is normal. IMPRESSION: This is compatible with severe, restrictive lung disease. There may also be a small airways obstructive component.
== END 2017-04-06 14:50 | disposition home or self-care (01) ==
LOC: HDOC 05:53 → HDIC 05:53 → HDOC 14:50
PROVIDERS: ATTEND Internal Medicine Interventional Cardiology
DX: I48.91 Unspecified atrial fibrillation (principal); D15.1 Benign neoplasm of heart; I25.3 Aneurysm of heart; R60.9 Edema, unspecified; R06.02 Shortness of breath; R06.01 Orthopnea; I50.31 Acute diastolic (congestive) heart failure; I11.0 Hypertensive heart disease with heart failure; I34.0 Nonrheumatic mitral (valve) insufficiency; I65.23 Occlusion and stenosis of bilateral carotid arteries; I25.10 Atherosclerotic heart disease of native coronary artery without angina pectoris; G62.9 Polyneuropathy, unspecified; R94.31 Abnormal electrocardiogram [ECG] [EKG]; I07.1 Rheumatic tricuspid insufficiency; R00.2 Palpitations; F17.200 Nicotine dependence, unspecified, uncomplicated; Z99.81 Dependence on supplemental oxygen; Z79.01 Long term (current) use of anticoagulants; R09.02 Hypoxemia
CPT/HCPCS: 71020; 80053; 81001; 83036; 85025; 85610; 86850; 86900; 86901; 87641; 92960; 93005; 93312; 93320; 93325; 93880; 94010

== ENCOUNTER 2017-04-18 05:11 | Inpatient (IN) | payer MEDICARE, OTHER ==
[2017-04-18] VITALS (13 sets, daily range): BP systolic 84–140; BP diastolic 15–75; PULSE 58–79; RESP 14–20; TEMP 97.7–98.6; O2SAT 94–99
[~2017-04-18 05:11] MED LIST changes: +ALBUAER3 INH; +AMIO200T PO; +ATEN25TA PO; -CEPH500C PO; -FLUTI110I INH; +SPIR25TA PO; -THERH PO
[2017-04-18] MEDS ORDERED: SODIUM CHLORID 0.9% 500 ML IV PRN (06:00)
[2017-04-18] MEDS ORDERED: METOPROLOL TARTRATE 25 MG TAB PO PRN (06:00)
[2017-04-18] MEDS ORDERED: INSULIN REGULAR 100 UNITS in NS 100 ML IV PRN (06:00)
[2017-04-18] MEDS ORDERED: INSULIN HUMAN REGULAR 1,000 UNITS/10 ML VIAL SQ PRN (06:00)
[2017-04-18] MEDS ORDERED: ceFAZolin 2 GM PREMIX 50 ML IV SCH (06:00)
[2017-04-18] MEDS ORDERED: CHLORHEXIDINE GLUCONATE 2 % 1 PACK (2 CLOTHS) TOPICAL PRN (06:00)
[2017-04-18] MEDS ORDERED: CHLORHEXIDINE GLUCONATE 4% SOLN 120 ML BTL TOPICAL SCH (06:00)
[2017-04-18] MEDS ORDERED: POVIDONE IODINE 5% (ANTISEPSIS KIT) 4 APPLICATIONS EACH NARE PRN (06:00)
[2017-04-18] MEDS: LACTATED RINGER'S 1000 ML IV PRN ×2 (06:15→12:53)
[2017-04-18] MEDS ORDERED: methylPREDNISolone SOD SUCC 125 MG/2 ML VIAL ONE (06:31)
[2017-04-18] MEDS ORDERED: ceFAZolin 2 GM PREMIX 50 ML ONE (06:31)
[2017-04-18] MEDS ORDERED: VANCOMYCIN HCL 1000 MG VIAL ONE (06:31)
[2017-04-18] MEDS ORDERED: HEPARIN SODIUM - SQ 10,000 UNITS/ML VIAL ONE (06:31)
[2017-04-18 06:44] LABS: AUTOMATED NEUTROPHIL # 4.4 TH/MM3 (1.8-7.7); BASOPHIL % 0.4 % (0.0-2.0); EOSINOPHIL # 0.1 TH/MM3 (0-0.4); EOSINOPHIL % 1.1 % (0.0-4.0); HEMATOCRIT 41.4 % (35.0-46.0); HEMO FLAGS DIFF FINAL; LYMPH % 16.3 % (9.0-44.0); MEAN CORPUSCULAR HEMOGLOBIN 32.2 PG (27.0-34.0); MEAN CORPUSCULAR HGB CONC 33.9 % (32.0-36.0); MONO % 11.8 % (0.0-8.0); NEUT % 70.4 % (16.0-70.0); PLATELET COUNT 202 TH/MM3 (150-450); RED BLOOD COUNT 4.35 MIL/MM3 (4.00-5.30); RED CELL DISTRIBUTION WIDTH 14.7 % (11.6-17.2); WHITE BLOOD COUNT 6.2 TH/MM3 (4.0-11.0)
[2017-04-18] MEDS ORDERED: ALBUMIN 25% INJ 100 ML IV ONE (06:49)
[2017-04-18] MEDS ORDERED: CARDIOPLEGIC IRR 2,000 ML ONE (06:49)
[2017-04-18] MEDS ORDERED: HEPARIN SODIUM - IV 10,000 UNITS/10 ML VIAL ONE (06:50)
[2017-04-18] MEDS ORDERED: MANNITOL INJ 100 ML ONE (06:50)
[2017-04-18] MEDS ORDERED: POTASSIUM CHLORIDE 40 MEQ/20 ML VIAL ONE (06:51)
[2017-04-18] MEDS ORDERED: SODIUM BICARBONATE 8.4% INJ 100 ML ONE (06:51)
[2017-04-18] MEDS ORDERED: CEFAZOLIN 500 MG in NS IRR BTL 500 ML IRRIGATION SCH (07:30)
[2017-04-18] MEDS ORDERED: ACETAMINOPHEN 1000 MG/100 ML 100 ML IV ONE (09:52)
[2017-04-18] MEDS ORDERED: SUGAMMADEX SODIUM 200 MG/2 ML VIAL IV PUSH ONE ×2 (09:55)
[2017-04-18] MEDS ORDERED: LACTATED RINGER'S 1000 ML INJ 500 ML IV PRN (10:09)
[2017-04-18] MEDS ORDERED: CALCIUM CHLORIDE 10% 1 GRAM/10 ML VIAL IV PUSH PRN (10:15)
[2017-04-18] MEDS ORDERED: ONDANSETRON HCL 4 MG/2 ML VIAL IV PUSH PRN (10:15)
[2017-04-18] MEDS ORDERED: CLEVIDIPINE INJ 50 ML IV PRN (10:15)
[2017-04-18] MEDS ORDERED: POTASSIUM CHLOR 20 MEQ PREMIX 100 ML IV PRN ×3 (10:15)
[2017-04-18] MEDS ORDERED: POTASSIUM CHLORIDE 20 MEQ CONTROLLED RELEASE TAB PO PRN ×2 (10:15)
[2017-04-18] MEDS ORDERED: MAGNESIUM SULFATE INJ 2 GM in SODIUM CHLORIDE 0.9% INJ 100 ML IV PRN ×4 (10:15)
[2017-04-18] MEDS ORDERED: ACETAMINOPHEN 650 MG SUPP RECTAL PRN (10:15)
[2017-04-18] MEDS ORDERED: SODIUM BICARBONATE 8.4% SOLN 50 MEQ/50 ML VIAL IV PUSH PRN ×2 (10:15)
[2017-04-18] MEDS ORDERED: hydrALAZINE HCL 20 MG/ML VIAL IV PUSH PRN (10:15)
[2017-04-18] MEDS ORDERED: DEXTROSE 50% IN WATER 50 ML VIAL(D50) IV PUSH PRN (10:15)
[2017-04-18] MEDS ORDERED: ALBUMIN 5% INJ 250 ML IV PRN (10:15)
[2017-04-18] MEDS ORDERED: RESP: RACEPINEPHRINE 2.25% 0.5 ML NEB NEB PRN (10:15)
[2017-04-18] MEDS ORDERED: DEXMEDETOMIDINE INJ 200 MCG in SODIUM CHLORIDE 0.9% INJ 50 ML IV PRN (10:15)
[2017-04-18] MEDS ORDERED: METOPROLOL TARTRATE 5 MG/5 ML VIAL IV PUSH PRN (10:15)
--- NOTE | 2017-04-18 10:37 | PD.OP ---
cc: Eagle Cosme MD; Marielena Moraes MD Operative Report Date of Surgery: Apr 18, 2017 Preoperative Diagnosis: (1) Atrial fibrillation (2) Atrial myxoma (3) Acute diastolic (congestive) heart failure Postoperative Diagnosis: same Procedure: Excisional biopsy of right atrial myxoma MAZE procedure MARCIE Anesthesia: Dr. Ansari Surgeon: Marielena Moraes Textile Converter(s): James Johnson Operation and Findings: The risks, benefits, complications, treatment options, and expected outcomes were discussed with the patient. The possibilities of reaction to medication, pulmonary aspiration, perforation of viscus, bleeding, recurrent infection, the need for additional procedures, failure to diagnose a condition, and creating a complication requiring transfusion or operation were discussed with the patient. The patient concurred with the proposed plan, giving informed consent. The site of surgery properly noted/marked. The patient was taken to Operating Room, identified as Suma Steele and the procedure verified as Excisional biopsy right atrial myxoma, MAZE procedure, MARCIE. A Time Out was held and the above information confirmed. Standard monitoring lines and Garcia catheter were placed. General anesthesia was induced. The patient was prepped and draped in a sterile fashion. A median sternotomy was performed and electrocautery was used to obtain hemostasis. The pericardium was opened and a pericardial sling was created using interrupted 0 silk sutures. The patient was heparinized for cardiopulmonary bypass. The heart was instrumented for cardiopulmonary bypass in the usual manner with bicaval venous drainage. Both the IVC and SVC were encircled with umbilical tapes to isolate the heart during the procedure. Antegrade blood cardioplegia was employed. The patient was placed on cardiopulmonary bypass. A MAZE procedure was performed by resecting the left atrial appendage initially. Subsequently, an Atricure device was used to create the remaiing lesions. A formal right- sided surgical MAZE was performed as well. The right atrial appendage was left in situ as it was very small. The umbilical tapes were ensnared and the right atrium was opened widely. A mass consistent with a right atrial myxoma was identified attached to the septum just above the tricuspid valve annulus. The mass was resected along with its attachment on the septum. The septum was oversewn at this point with a 4-0 Prolene suture. The right atrium was closed using a running 4-0 Prolene suture. The patient was systemically rewarmed. The patient was placed in Trendelenburg's position. The clamp was removed, deairing continued. Intraoperative MARCIE was used to assess intracardiac air. . The patient was and weaned from cardiopulmonary bypass. Protamine was given. There was no adverse reaction. Decannulation was carried out without incident. Wound was checked for hemostasis which was obtained using electrocautery. A 36 Montserratian mediastinal and 28 Montserratian Riley pericardial drain were placed and secured to the skin with 0 silk suture. The sternum was closed with stainless steel wire. The fascia was closed with 1. PDS. The subcutaneous tissue was closed using a running 2-0 Vicryl suture. The skin was closed with 4-0 Monocryl. Sterile dressings were placed. At the end of the operation, all sponge, instruments, and needle counts were correct. The patient was transferred to the CVICU in stable condition. Findings: large mass in the right atrium. The patient arrived in AFIB and left in sinus aung, a-paced at 80 XC: 23 min CPB: 47 min Drains: mediastinal x 1 Specimens: right atrial mass, left atrial appendage Complications: none Disposition: to CVICU in stable condition Pacing Wires: 2 atrial Marielena Moraes MD Apr 18, 2017 10:37
[2017-04-18] MEDS ORDERED: Post-op Orders (for Pharmacy) MISC OTHER ONE (10:58)
[2017-04-18] MEDS ORDERED: INSULIN REGULAR (IV INFUSION) 100 UNITS in SODIUM CHLORIDE 0.9% INJ 99 ML IV PRN (12:00)
[2017-04-18] MEDS ORDERED: CALCIUM CHLORIDE INJ 1 GM in SODIUM CHLORIDE 0.9% INJ 100 ML IV PRN (12:00)
[2017-04-18] MEDS ORDERED: NITROGLYCERIN 50 MG/DEXTROSE 5% SOLN 250 ML BTL IV ONE (12:52)
[2017-04-18] MEDS ORDERED: ePHEDrine/NS 25 MG/5 ML SYR IV ONE ×2 (12:52)
[2017-04-18] MEDS ORDERED: ARTIFICIAL TEARS OPTH OINT 3.5 APPLIC/3.5 GM TUBO ONE (12:52)
[2017-04-18] MEDS ORDERED: MAGNESIUM SULFATE 1 GM/2 ML VIAL IV ONE (12:52)
[2017-04-18] MEDS ORDERED: HEPARIN SODIUM - SQ 10,000 UNITS/ML VIAL SQ ONE (12:52)
[2017-04-18] MEDS ORDERED: LACTATED RINGER'S 1000 ML INJ 2,000 ML IV ONE (12:52)
[2017-04-18] MEDS ORDERED: PROTAMINE SULFATE 250 MG/25 ML VIAL IV ONE (12:52)
[2017-04-18] MEDS ORDERED: PROPOFOL 500 MG/50 ML BTL IV ONE (12:52)
[2017-04-18] MEDS ORDERED: NORMOSOL R INJ 1,000 ML IV ONE (12:52)
[2017-04-18] MEDS ORDERED: VECURONIUM BROMIDE 20 MG VIAL IV ONE (12:52)
[2017-04-18] MEDS ORDERED: CALCIUM CHLORIDE 10% SOLN 1 GRAM/10 ML SYR IV ONE (12:52)
[2017-04-18] MEDS ORDERED: FUROSEMIDE 100 MG/10 ML VIAL IV PUSH ONE (12:52)
[2017-04-18] MEDS ORDERED: SODIUM CHLORID 0.9% 500 ML INJ 500 ML IV ONE (12:52)
[2017-04-18] MEDS ORDERED: LIDOCAINE HCL 1% PF 5 ML AMPULE OTHER ONE (12:52)
[2017-04-18] MEDS ORDERED: TRANEXAMIC ACID INJ 1,000 MG/10 ML AMP IV ONE (12:52)
[2017-04-18] MEDS ORDERED: PHENYLEPH/NS 1000 MCG/10 ML SYR IV ONE ×2 (12:52)
[2017-04-18] MEDS ORDERED: SODIUM BICARBONATE 8.4% INJ 50 MEQ/50 ML SYR IV ONE (12:52)
[2017-04-18] MEDS ORDERED: PHENYLEPHRINE HCL 10 MG/ML VIAL IV ONE (12:52)
[2017-04-18] MEDS: ACETAMINOPHEN 1000 MG/100 ML 100 ML IV SCH ×2 (12:55→17:52)
--- NOTE | 2017-04-18 13:49 | RADRPT ---
EXAM DATE/TIME: 04/18/2017 12:39 [facility] COMPARISON: CHEST SINGLE AP, March 04, 2017, 11:13. INDICATIONS : Status Post CABG. MEDICAL HISTORY : Chronic obstructive pulmonary disease. Congestive heart failure.Emphysema. Arthritis. Carcinoma, skin . Hypertension. SURGICAL HISTORY : Cholecystectomy. section. Tubal ligation. Cataract removal. Appendectomy. Right knee replace ment. Right hip replacement. ENCOUNTER: Initial ACUITY: 1 day PAIN SCORE: Non-responsive. LOCATION: Bilateral chest FINDINGS: A single portable frontal view the chest shows interval median sternotomy. A subxiphoid chest tube is seen overlying the spine. A left subclavian central venous sheath is observed. No pneumothorax seen. Heart is enlarged. Pulmonary vascular engorgement is mild. No infiltrate or effusion. CONCLUSION: Interval median sternotomy with life-support lines. No pneumothorax. Cardiomegaly with mild pulmonary vascular engorgement. Kaushik Bah Jr., MD on April 18, 2017 at 13:46 Board Certified Radiologist. This report was verified electronically.
[2017-04-18] MEDS: ACETAMINOPHEN/HYDROcodone 325 MG/5 MG TAB PO PRN (20:42)
[2017-04-19] VITALS (18 sets, daily range): BP systolic 94–143; BP diastolic 44–74; PULSE 34–83; RESP 15–18; TEMP 97.7–98.7; O2SAT 90–99
[2017-04-19] MEDS: ACETAMINOPHEN 1000 MG/100 ML 100 ML IV SCH ×2 (00:17→06:00)
[2017-04-19 05:05] LABS: HEMATOCRIT 38.4 % (35.0-46.0); MEAN CELL VOLUME 95.6 FL (80.0-100.0); MEAN CORPUSCULAR HEMOGLOBIN 31.8 PG (27.0-34.0); MEAN CORPUSCULAR HGB CONC 33.3 % (32.0-36.0); PLATELET COUNT 149 TH/MM3 (150-450); RED BLOOD COUNT 4.02 MIL/MM3 (4.00-5.30); RED CELL DISTRIBUTION WIDTH 14.2 % (11.6-17.2); REVIEW FLAG FINAL; WHITE BLOOD COUNT 14.1 TH/MM3 (4.0-11.0)
[2017-04-19 05:14] LABS: BICARBONATE 26.9 MEQ/L (21.0-32.0); MAGNESIUM 2.6 MG/DL (1.5-2.5); POTASSIUM 4.3 MEQ/L (3.5-5.1)
--- NOTE | 2017-04-19 05:24 | RADRPT ---
EXAM DATE/TIME: 04/19/2017 04:43 [facility] COMPARISON: CHEST SINGLE AP, April 18, 2017, 12:39. INDICATIONS : Short of breath. MEDICAL HISTORY : Chronic obstructive pulmonary disease. Congestive heart failure.Emphysema. Arthritis. Carcinoma, skin . Hypertension. SURGICAL HISTORY : Cholecystectomy. section. Tubal ligation. Cataract removal. Appendectomy. Right knee replace ment. Right hip replacement. ENCOUNTER: Subsequent ACUITY: 1 week PAIN SCORE: 0/10 LOCATION: Bilateral chest FINDINGS: The cardiac silhouette is normal in transverse diameter. Median sternotomy wires are present. There i s left lower lobe atelectasis versus pneumonia. The right lung is free of acute parenchymal opacity. CONCLUSION: 1. Left lower lobe atelectasis versus pneumonia. There has been no significant change when compared t o the prior exam. Filipe Navarro MD on April 19, 2017 at 5:22 Board Certified Radiologist. This report was verified electronically.
[2017-04-19] MEDS: PANTOPRAZOLE SOD 40 MG DELAYED RELEASE TAB PO SCH (06:00)
[2017-04-19] MEDS: ACETAMINOPHEN/HYDROcodone 325 MG/5 MG TAB PO PRN ×3 (06:29→23:37)
[2017-04-19] MEDS ORDERED: DEXTROSE 50% IN WATER 50 ML VIAL(D50) IV PUSH PRN (07:45)
[2017-04-19] MEDS ORDERED: SOD PHOSPHATE/SOD BIPHOSPHATE (ADULT) ENEMA 133ML RECTAL PRN (07:45)
[2017-04-19] MEDS ORDERED: BISACODYL 10 MG SUPP RECTAL PRN (07:45)
[2017-04-19] MEDS ORDERED: GLUCAGON 1 MG/ML VIAL OTHER PRN (07:45)
[2017-04-19] MEDS: ASPIRIN 81 MG CHEW TAB PO SCH (08:59)
[2017-04-19] MEDS: MAGNESIUM HYDROXIDE SUSP 30 ML CUP PO SCH (08:59)
[2017-04-19] MEDS: MULTIVITAMINS/MINERALS THERAPEUTIC TAB PO SCH (08:59)
[2017-04-19] MEDS: POTASSIUM CHLORIDE 10 MEQ CONTROLLED RELEASE TAB PO SCH ×2 (08:59→20:58)
[2017-04-19] MEDS: FUROSEMIDE 40 MG/4 ML VIAL IV PUSH SCH ×2 (09:00→18:10)
[2017-04-19] MEDS ORDERED: AMIODARONE 200 MG TAB PO SCH (09:00)
[2017-04-19] MEDS ORDERED: MULTIVITAMIN INJ 10 ML, THIAMINE INJ 500 MG, FOLIC ACID INJ 1 MG in SODIUM CHLORID 0.9%... IV SCH (09:00)
[2017-04-19] MEDS ORDERED: ATENOLOL 25 MG TAB PO SCH (09:00)
--- NOTE | 2017-04-19 13:49 | EKG ---
Date Performed: 04/19/2017 Time Performed: 05:17:02 PTAGE: 77 years EKG: Sinus rhythm Poor R wave progression - probable normal variant Low QRS voltages in precordial leads Borderline EC G PREVIOUS TRACING : 04/06/2017 08.49 DOCTOR: Prosper Joseph Interpretating Date/Time 04/19/2017 13:43:49
--- NOTE | 2017-04-19 15:24 | PD.CAR.PN ---
CVT Progress Note Subjective/Hospital Course: 77/ female hx of Atrial fibrillation ( eliquis ) , Atrial myxoma, Acute diastolic ( congestive) heart failure HTN, COPD, palpatations, chronic hypoxemia on home 02 , non obstructive CAD by cath EF 45-50% admitted electively for surgery: Excisional biopsy of right atrial myxoma, MAZE procedure, MARCIE 04/18 04/19 Up in chair, on nasal cannula no pressors , stable for transfer to stepdown pulm toileting / nebs ezpap PT/ Objective: GENERAL: SKIN: Warm and dry. prevena to chest HEAD: Normocephalic. EYES: No scleral icterus. No injection or drainage. NECK: Supple, trachea midline. No JVD or lymphadenopathy. CARDIOVASCULAR: Regular rate and rhythm without murmurs, gallops, or rubs. RESPIRATORY: Breath sounds equal bilaterally. No accessory muscle use. GASTROINTESTINAL: Abdomen soft, non-tender, nondistended. MUSCULOSKELETAL: No cyanosis, or edema. BACK: Nontender without obvious deformity. No CVA tenderness. Vital Signs Date Time Temp Pulse Resp B/P (MAP) Pulse Ox O2 Delivery O2 Flow Rate FiO2 04/19/17 11:45 68 04/19/17 11:45 98.7 68 18 122/60 (80) 99 Arterial Line 04/19/17 11:45 99 Nasal Cannula 2.00 04/19/17 07:00 94 Nasal Cannula 3.00 04/19/17 07:00 98.5 77 16 131/74 (93) 94 143/67 (92) 04/19/17 07:00 68 04/19/17 03:17 98.2 65 15 131/44 (73) 93 139/64 (89) 04/19/17 03:17 99 Nasal Cannula 3.00 04/19/17 03:17 65 04/18/17 23:52 99 Nasal Cannula 3.00 04/18/17 23:52 98.0 61 15 133/67 (89) 99 140/65 (90) 04/18/17 23:52 58 04/18/17 19:47 97.9 79 15 129/75 (93) 99 119/65 (83) 04/18/17 19:47 99 Nasal Cannula 3.00 04/18/17 19:00 77 04/18/17 19:00 77 Labs: Laboratory Tests Test 04/19/17 04:22 White Blood Count 14.1 TH/MM3 (4.0-11.0) Red Blood Count 4.02 MIL/MM3 (4.00-5.30) Hemoglobin 12.8 GM/DL (11.6-15.3) Hematocrit 38.4 % (35.0-46.0) Mean Corpuscular Volume 95.6 FL (80.0-100.0) Mean Corpuscular Hemoglobin 31.8 PG (27.0-34.0) Mean Corpuscular Hemoglobin Concent 33.3 % (32.0-36.0) Red Cell Distribution Width 14.2 % (11.6-17.2) Platelet Count 149 TH/MM3 (150-450) Mean Platelet Volume 8.0 FL (7.0-11.0) Blood Urea Nitrogen 29 MG/DL (7-18) Creatinine 1.23 MG/DL (0.50-1.00) Random Glucose 151 MG/DL (74-106) Calcium Level 9.0 MG/DL (8.5-10.1) Magnesium Level 2.6 MG/DL (1.5-2.5) Sodium Level 137 MEQ/L (136-145) Potassium Level 4.3 MEQ/L (3.5-5.1) Chloride Level 101 MEQ/L (98-107) Carbon Dioxide Level 26.9 MEQ/L (21.0-32.0) Anion Gap 9 MEQ/L (5-15) Estimat Glomerular Filtration Rate 42 ML/MIN (>89) Result Diagram: 04/19/172 04/19/17 0422 Telemetry: NSR (1) Atrial myxoma Plan: remains in NSR OOB, ambulate/ PT eval for chest tube removal in am transfer to stepdown pain control (2) chronic hypoxemia/ home 02 (3) COPD (chronic obstructive pulmonary disease) Plan: nebs, (4) Mitral regurgitation (5) Acute diastolic (congestive) heart failure Plan: on scheduled lasix (6) Hypertension Plan: home meds (7) Atrial fibrillation Plan: no win NSR/ resume eliquis on discharge Bernadette Barrett Apr 19, 2017 15:24
--- NOTE | 2017-04-19 15:28 | HHI.FF ---
Face to Face Verification Diagnosis: (1) Atrial myxoma (2) Atrial fibrillation (3) chronic hypoxemia/ home 02 (4) Hypertension Home Health Nursing Order: Signs/symptoms of disease process Medication education-adverse effect Wound care and dressing changes Nursing assessment with vital signs Instructions: Heart and Vascular Surgery patients *Special attention to sternal dressing Mandatory frequency Assess and evaluation, 4 days in a row The next week 3X week 2 times a week for 4 weeks 1 time a week for 5 weeks Schedule Heart and Vascular patients for full 60 day certification period Initial visit Review Open Heart Surgery Discharge Instructions (Sternal precautions, Activity, Elastic hose, Incision care, Driving, Incentive spirometry, Smoking, [place], Work and other) Need Betadine to paint incision Medication reconciliation Importance of follow up care/ check on appointments Make calendar record temperature daily When to call [facility] nurse, review instructions, phone list Incentive Spirometry, demonstration Visit 1- Begin discharge instruction for patient family and/ or caregiver using teach back method- Signs and symptoms of infection Disease characteristics Medicines and side effects Foods and nutrition/ appetite Infection control/ hand washing/ hygiene Visit 2- Continue teaching Discharge instructions- include additional information on smoking cessation , sternal dressing (sternal vac) Visit 3- Continue teaching- Cough and deep breathing, incision monitoring. Choose my plate Visit 4- Continue teaching- Discuss limitations Discuss how they are feeling Discuss progress toward goals Remaining visits- continue teaching and monitoring PREVENA Single Use Negative Wound Therapy System Caregiver Instruction Sheet 1. A Prevena dressing system was applied to the chest incision during surgery , to promote wound healing. It works via a suction device (negative pressure wound therapy) to remove low to moderate levels of exudate (drainage) and infectious materials. We recommend that the device stay in place for up to seven days, from day of surgery. 2. Day of Surgery____04/18/17 Day of Removal 04/25/17 3. The dressing should only be removed by a health chiropractic care. Please arrange removal of device to coincide with Home Health visit and or with Nursing staff at Rehab 4. If skin reddening or irritation of skin occurs, or excessive drainage, please notify the Cardiovascular Surgeons office at [phone]. 5. Light showering is permissible; however the pump should be disconnected and placed in safe location, where it will not get wet. The dressing should not be exposed to direct spray or submerged in water. No bath tub / shower only. Ensure the end of the tubing attached to the dressing is facing down so that water does not enter the top of the tube. 6. To remove Prevena dressing: press purple button to turn off device / remove the suction. Then disconnect the tubing from the pump. The fixation strips should be stretched away from the skin and the dressing lifted at one corner and peeled back until it has been fully removed. 7. After removal, it is ok to shower daily using liquid dial soap and clean wash cloth, rinse and pat dry, and leave incision open to air dry. For any concerns regarding Prevena dressing, and or wounds, please contact Susanne Goetz, patient navigator at [phone] or notify the Cardiovascular Surgeons office at [phone]. Incentive spirometry Q1 hr x 10, while awake, also use acapella device hourly whole awake Sternal Breast Bone Precautions: NO pushing or pulling, ( pt must use sternal pillow to support chest with all activities and with coughing ( takes up to 3 months breast bone to heal ) All females to wear sternal bra , launder as needed Daily incision care: ok to shower daily, no tub bath. Wash all incisions with liquid dial soap, clean wash cloth to each site, rinse and pat dry. Observe for any signs of infection, such as drainage which is dark yellow, almanza, green or foul smelling. Immediately report to the surgeon any drainage from the chest incision, or legs, and for any abnormal drainage from the chest tube sites. Notify surgeon if any temp >101.5 degrees F. When specialty dressing removed/ or if you do not have one, continue to shower daily as above, then rinse and pat incision dry and paint with betadine daily x 5 days. Allow steri strips to fall off if you have any. Avoid lotions, creams, salves, oils, etc. for the first month Please see attached forms for additional instructions regarding post Open Heart specialty wound vacuum dressings. DEEPAK or Prevena , Dressing to be removed by Nursing staff on ____04/25/17___ For Dr. Moraes patients , please obtain CBC, BMP, PA & Lat CXR in 2 weeks, results to Dr. Moraes ( prescription will be given) ( ) (Tele: [phone]) , F/U appointment: as per [place] instructions: PCP in 2 weeks, CV surgeon 2 weeks, Instructional Facilitator 3-4 weeks For any questions regarding incisions/ dressing / meds / post op care or above Symptoms, Monday 8am-5pm Heart & Vascular Surgery Office ( Dr. Grey & Dr. Moraes), After Hours / Nights (5pm -8am) Weekends and Holidays Please call [facility] Card[facility] ([facility]) Charge Nurse I have seen patient Suma Steele on 04/19/17. My clinical findings support the need for the requested home health care services because: Patient has SOB Deconditioned w/ increased weakness I certify that my clinical findings support that this patient is homebound because: Post-op weakness Impaired cognitive ability/safety Bernadette Barrett Apr 19, 2017 15:27
[2017-04-19] MEDS: INSULIN ASPART SUPPLEMENTAL SCALE SQ SCH ×3 (15:30→22:00)
[2017-04-19] MEDS: SENNOSIDES 8.6 MG TAB PO SCH (20:58)
[2017-04-19] MEDS: DOCUSATE SODIUM 100 MG CAP PO SCH (20:58)
[2017-04-20] VITALS (29 sets, daily range): BP systolic 89–122; BP diastolic 51–58; PULSE 48–122; RESP 18–20; TEMP 97.5–98.2; O2SAT 91–96
[2017-04-20] MEDS: INSULIN ASPART SUPPLEMENTAL SCALE SQ SCH ×5 (02:00→21:00)
[2017-04-20] MEDS: PANTOPRAZOLE SOD 40 MG DELAYED RELEASE TAB PO SCH (05:17)
[2017-04-20 05:59] LABS: AUTOMATED NEUTROPHIL # 10.6 TH/MM3 (1.8-7.7); BASOPHIL % 0.1 % (0.0-2.0); EOSINOPHIL % 0.1 % (0.0-4.0); HEMATOCRIT 34.2 % (35.0-46.0); HEMO FLAGS DIFF FINAL; LYMPH % 10.1 % (9.0-44.0); LYMPHOCYTE # 1.4 TH/MM3 (1.0-4.8); MEAN CELL VOLUME 96.3 FL (80.0-100.0); MEAN CORPUSCULAR HEMOGLOBIN 32.6 PG (27.0-34.0); MEAN CORPUSCULAR HGB CONC 33.8 % (32.0-36.0); MONO % 10.9 % (0.0-8.0); NEUT % 78.8 % (16.0-70.0); PLATELET COUNT 155 TH/MM3 (150-450); RED BLOOD COUNT 3.55 MIL/MM3 (4.00-5.30); RED CELL DISTRIBUTION WIDTH 14.2 % (11.6-17.2); WHITE BLOOD COUNT 13.5 TH/MM3 (4.0-11.0)
[2017-04-20 06:23] LABS: BICARBONATE 31.8 MEQ/L (21.0-32.0); MAGNESIUM 2.7 MG/DL (1.5-2.5)
[2017-04-20] MEDS: MULTIVITAMINS/MINERALS THERAPEUTIC TAB PO SCH (09:43)
[2017-04-20] MEDS: DOCUSATE SODIUM 100 MG CAP PO SCH ×2 (09:43→20:39)
[2017-04-20] MEDS: FUROSEMIDE 40 MG/4 ML VIAL IV PUSH SCH ×2 (09:44→18:36)
[2017-04-20] MEDS: POLYETHYLENE GLYCOL 17 GM PKG PO SCH (09:44)
[2017-04-20] MEDS: POTASSIUM CHLORIDE 10 MEQ CONTROLLED RELEASE TAB PO SCH ×2 (09:44→20:39)
[2017-04-20] MEDS: ASPIRIN 81 MG CHEW TAB PO SCH (09:44)
[2017-04-20] MEDS: ACETAMINOPHEN/HYDROcodone 325 MG/5 MG TAB PO PRN ×2 (09:45→20:38)
[2017-04-20] MEDS: MAGNESIUM HYDROXIDE SUSP 30 ML CUP PO SCH (09:45)
--- NOTE | 2017-04-20 10:46 | PD.CAR.PN ---
CVT Progress Note Subjective/Hospital Course: 77/ female hx of Atrial fibrillation ( eliquis ) , Atrial myxoma, Acute diastolic ( congestive) heart failure HTN, COPD, palpatations, chronic hypoxemia on home 02 , non obstructive CAD by cath EF 45-50% admitted electively for surgery: Excisional biopsy of right atrial myxoma, MAZE procedure, MARCIE 04/18 04/19 Up in chair, on nasal cannula no pressors , stable for transfer to stepdown pulm toileting / nebs ezpap PT/ 04/20 remains on room air chest tube dc without difficulty pt developed bradycardia yesterday / HR 30's A paced yesterday at 80. pacer now at 45 as back up / HR high 40's BP stable BB and amiodarone dc yesterday Back in afib will need to resume eliquis once A wire dc Objective: GENERAL: A&0 x 3 SKIN: Warm and dry. Prevena dressing to chest. A wire in place HEAD: Normocephalic. EYES: No scleral icterus. No injection or drainage. NECK: Supple, trachea midline. No JVD or lymphadenopathy. CARDIOVASCULAR: irregular rate and rhythm Regular rate and rhythm without murmurs, gallops, or rubs. RESPIRATORY: Breath sounds equal bilaterally. No accessory muscle use. GASTROINTESTINAL: Abdomen soft, non-tender, nondistended. MUSCULOSKELETAL: No cyanosis, or edema. BACK: Nontender without obvious deformity. No CVA tenderness. Date Time Temp Pulse Resp B/P (MAP) Pulse Ox O2 Delivery O2 Flow Rate FiO2 04/20/17 07:37 97.9 80 18 96/51 (66) 94 04/20/17 07:37 94 Room Air 04/20/17 07:00 82 04/20/17 06:00 82 04/20/17 05:00 78 04/20/17 04:02 79 04/20/17 03:57 79 04/20/17 03:39 Nasal Cannula 1.00 04/20/17 03:39 98.2 76 89/53 (65) 93 04/20/17 02:24 81 04/20/17 01:00 80 04/20/17 00:14 98.2 81 91/54 (66) 91 04/20/17 00:14 Room Air 04/20/17 00:00 78 04/19/17 23:00 78 04/19/17 22:00 74 04/19/17 21:00 78 04/19/17 20:20 93 04/19/17 20:00 Room Air 04/19/17 20:00 78 04/19/17 20:00 97.7 83 94/54 (67) 90 04/19/17 19:00 79 04/19/17 17:00 82 04/19/17 16:35 34 04/19/17 16:00 64 04/19/17 15:11 98.6 60 18 120/56 (77) 93 04/19/17 15:11 60 04/19/17 15:11 Room Air 04/19/17 14:00 64 04/19/17 13:00 62 04/19/17 12:00 68 04/19/17 11:45 68 04/19/17 11:45 98.7 68 18 122/60 (80) 99 Arterial Line 04/19/17 11:45 99 Nasal Cannula 2.00 04/19/17 11:00 60 Labs: Laboratory Tests Test 04/20/17 05:30 White Blood Count 13.5 TH/MM3 (4.0-11.0) Red Blood Count 3.55 MIL/MM3 (4.00-5.30) Hemoglobin 11.6 GM/DL (11.6-15.3) Hematocrit 34.2 % (35.0-46.0) Mean Corpuscular Volume 96.3 FL (80.0-100.0) Mean Corpuscular Hemoglobin 32.6 PG (27.0-34.0) Mean Corpuscular Hemoglobin Concent 33.8 % (32.0-36.0) Red Cell Distribution Width 14.2 % (11.6-17.2) Platelet Count 155 TH/MM3 (150-450) Mean Platelet Volume 8.2 FL (7.0-11.0) Neutrophils (%) (Auto) 78.8 % (16.0-70.0) Lymphocytes (%) (Auto) 10.1 % (9.0-44.0) Monocytes (%) (Auto) 10.9 % (0.0-8.0) Eosinophils (%) (Auto) 0.1 % (0.0-4.0) Basophils (%) (Auto) 0.1 % (0.0-2.0) Neutrophils # (Auto) 10.6 TH/MM3 (1.8-7.7) Lymphocytes # (Auto) 1.4 TH/MM3 (1.0-4.8) Monocytes # (Auto) 1.5 TH/MM3 (0-0.9) Eosinophils # (Auto) 0.0 TH/MM3 (0-0.4) Basophils # (Auto) 0.0 TH/MM3 (0-0.2) CBC Comment DIFF FINAL Differential Comment Blood Urea Nitrogen 38 MG/DL (7-18) Creatinine 1.16 MG/DL (0.50-1.00) Random Glucose 84 MG/DL (74-106) Calcium Level 8.6 MG/DL (8.5-10.1) Magnesium Level 2.7 MG/DL (1.5-2.5) Sodium Level 135 MEQ/L (136-145) Potassium Level 5.0 MEQ/L (3.5-5.1) Chloride Level 100 MEQ/L (98-107) Carbon Dioxide Level 31.8 MEQ/L (21.0-32.0) Anion Gap 3 MEQ/L (5-15) Estimat Glomerular Filtration Rate 45 ML/MIN (>89) Result Diagram: 04/20/1752904/20/17529 Telemetry: Afib (1) Atrial myxoma Plan: Back in afib / slow ventricular response OOB, ambulate/ PT chest tube removed without difficulty still has A wires for now if HR remains stable , will dc pain control (2) chronic hypoxemia/ home 02 (3) COPD (chronic obstructive pulmonary disease) Plan: nebs, (4) Mitral regurgitation (5) Acute diastolic (congestive) heart failure Plan: on scheduled lasix (6) Hypertension Plan: home meds (7) Atrial fibrillation Plan: back in afib / resume eliquis on discharge Bernadette Barrett Apr 20, 2017 10:46
[2017-04-20] MEDS ORDERED: ASPIRIN EC 81 MG TABEC PO SCH (13:30)
[2017-04-20] MEDS: RESP: ALBUTEROL 2.5 MG/IPRATROPIUM 0.5 MG NEB (PRN) NEB (16:15)
[2017-04-20] MEDS: SENNOSIDES 8.6 MG TAB PO SCH (20:39)
[2017-04-21] VITALS (29 sets, daily range): BP systolic 82–115; BP diastolic 51–63; PULSE 78–130; RESP 18–20; TEMP 97.9–99.7; O2SAT 92–97
[2017-04-21] MEDS: PANTOPRAZOLE SOD 40 MG DELAYED RELEASE TAB PO SCH (06:33)
[2017-04-21] MEDS: POLYETHYLENE GLYCOL 17 GM PKG PO SCH (09:00)
[2017-04-21] MEDS: MAGNESIUM HYDROXIDE SUSP 30 ML CUP PO SCH (09:00)
[2017-04-21] MEDS: DOCUSATE SODIUM 100 MG CAP PO SCH (09:00)
[2017-04-21] MEDS: POTASSIUM CHLORIDE 10 MEQ CONTROLLED RELEASE TAB PO SCH (09:07)
[2017-04-21] MEDS: MULTIVITAMINS/MINERALS THERAPEUTIC TAB PO SCH (09:07)
[2017-04-21] MEDS: INSULIN ASPART SUPPLEMENTAL SCALE SQ SCH ×4 (09:07→21:00)
[2017-04-21] MEDS: ASPIRIN 81 MG CHEW TAB PO SCH (09:07)
[2017-04-21] MEDS: FUROSEMIDE 40 MG/4 ML VIAL IV PUSH SCH (09:08)
[2017-04-21 11:12] LABS: BICARBONATE 33.1 MEQ/L (21.0-32.0); MAGNESIUM 2.8 MG/DL (1.5-2.5); POTASSIUM 4.4 MEQ/L (3.5-5.1)
[2017-04-21] MEDS: ACETAMINOPHEN/HYDROcodone 325 MG/5 MG TAB PO PRN (12:27)
--- NOTE | 2017-04-21 15:35 | PD.CAR.PN ---
CVT Progress Note Subjective/Hospital Course: 77/ female hx of Atrial fibrillation ( eliquis ) , Atrial myxoma, Acute diastolic ( congestive) heart failure HTN, COPD, palpatations, chronic hypoxemia on home 02 , non obstructive CAD by cath EF 45-50% admitted electively for surgery: Excisional biopsy of right atrial myxoma, MAZE procedure, MARCIE 04/18 04/19 Up in chair, on nasal cannula no pressors , stable for transfer to stepdown pulm toileting / nebs ezpap PT/ 04/20 remains on room air chest tube dc without difficulty pt developed bradycardia yesterday / HR 30's A paced yesterday at 80. pacer now at 45 as back up / HR high 40's BP stable BB and amiodarone dc yesterday Back in afib will need to resume eliquis once A wire dc 04/21 remains in afib rate 110, BP labile unable to restart BB, pacer turned off consult placed with Dr Lucia ( covering for Dr Anderson) start lovenox DVT prophy, resume eliquis once A wire removed Objective: GENERAL: SKIN: Warm and dry. prevena dressing to chest / A wire in place right mid chest HEAD: Normocephalic. EYES: No scleral icterus. No injection or drainage. NECK: Supple, trachea midline. No JVD or lymphadenopathy. CARDIOVASCULAR: irregular rate and rhythm mild edema without murmurs, gallops, or rubs. RESPIRATORY: Breath sounds equal bilaterally. No accessory muscle use. GASTROINTESTINAL: Abdomen soft, non-tender, nondistended. MUSCULOSKELETAL: No cyanosis, or edema. BACK: Nontender without obvious deformity. No CVA tenderness. Vital Signs Date Time Temp Pulse Resp B/P (MAP) Pulse Ox O2 Delivery O2 Flow Rate FiO2 04/21/17 15:10 92 Room Air 04/21/17 15:10 98.4 101 18 95/63 (74) 92 04/21/17 14:29 127 04/21/17 13:20 93 04/21/17 13:08 122 04/21/17 12:15 119 04/21/17 11:07 98.3 110 18 100/61 (74) 95 04/21/17 11:07 92 Room Air 04/21/17 11:00 120 04/21/17 10:00 116 04/21/17 09:00 116 10/20/17 08:00 122 04/21/17 07:50 93 Nasal Cannula 2.00 04/21/17 07:25 95 Room Air 04/21/17 07:25 98.5 117 18 82/54 (63) 95 04/21/17 07:00 118 04/21/17 06:00 110 04/21/17 05:00 110 04/21/17 04:00 97.9 110 18 84/54 (64) 97 04/21/17 04:00 106 04/21/17 03:13 96 Room Air 04/21/17 03:00 104 04/21/17 02:00 102 04/21/17 01:00 104 04/21/17 00:00 97 Room Air 04/21/17 00:00 106 04/21/17 00:00 98.0 99 18 96/57 (70) 97 04/20/17 23:00 104 04/20/17 22:00 122 04/20/17 21:00 96 04/20/17 20:00 98.2 105 20 118/58 (78) 96 04/20/17 20:00 102 04/20/17 20:00 Nasal Cannula 2.00 04/20/17 20:00 94 Nasal Cannula 04/20/17 20:00 102 04/20/17 19:00 110 04/20/17 19:00 105 04/20/17 18:00 77 04/20/17 17:00 50 04/20/17 16:00 52 Labs: Laboratory Tests Test 04/21/17 09:56 Blood Urea Nitrogen 37 MG/DL (7-18) Creatinine 0.92 MG/DL (0.50-1.00) Random Glucose 99 MG/DL (74-106) Calcium Level 9.3 MG/DL (8.5-10.1) Phosphorus Level 3.2 MG/DL (2.5-4.9) Magnesium Level 2.8 MG/DL (1.5-2.5) Sodium Level 136 MEQ/L (136-145) Potassium Level 4.4 MEQ/L (3.5-5.1) Chloride Level 99 MEQ/L (98-107) Carbon Dioxide Level 33.1 MEQ/L (21.0-32.0) Anion Gap 4 MEQ/L (5-15) Estimat Glomerular Filtration Rate 59 ML/MIN (>89) Result Diagram: 04/20/17 0530 04/21/17 0956 Telemetry: Afib (1) Atrial myxoma Plan: afib rate 110, BP labile unable to resume BB / was on amiodarone at home no further junctional or bradycardia consult placed with cardiology start lovenox DVT prophy resume eliquis when A wire removed (2) chronic hypoxemia/ home 02 (3) COPD (chronic obstructive pulmonary disease) Plan: nebs, (4) Mitral regurgitation (5) Acute diastolic (congestive) heart failure Plan: on scheduled lasix (6) Hypertension Plan: home meds (7) Atrial fibrillation Plan: back in afib / resume eliquis on discharge Bernadette Barrett Apr 21, 2017 15:35
[2017-04-21] MEDS ORDERED: DOCUSATE SODIUM 100 MG CAP PO PRN (15:45)
[2017-04-21] MEDS ORDERED: DIGOXIN 0.5 MG/2 ML VIAL IV PUSH ONE (16:30)
[2017-04-21] MEDS: ENOXAPARIN SODIUM 40 MG/0.4 ML SYRINGE SQ SCH (16:42)
[2017-04-21] MEDS: AMIODARONE 200 MG TAB PO SCH (20:38)
[2017-04-21] MEDS: SENNOSIDES 8.6 MG TAB PO SCH (20:54)
[2017-04-21] MEDS: ACETAMINOPHEN 325 MG TAB PO PRN (21:54)
--- NOTE | 2017-04-21 22:03 | EKG ---
Date Performed: 04/20/2017 Time Performed: 14:57:02 PTAGE: 77 years EKG: Demand atrial pacing Poor R wave progression - probable normal variant Inferior and lateral ST elevation - possible early repolarization Low QRS voltages in precordial leads Abnormal ECG PREVIOUS TRACING : 04/19/2017 05.17 Compared to prior tracing no significant change DOCTOR: Rosas Liao Interpretating Date/Time 04/21/2017 21:39:53
[2017-04-22] VITALS (25 sets, daily range): BP systolic 92–115; BP diastolic 51–72; PULSE 100–139; RESP 16–20; TEMP 98.2–98.9; O2SAT 94–98
[2017-04-22] MEDS: PANTOPRAZOLE SOD 40 MG DELAYED RELEASE TAB PO SCH (06:14)
[2017-04-22] MEDS: INSULIN ASPART SUPPLEMENTAL SCALE SQ SCH ×4 (08:00→21:00)
[2017-04-22] MEDS: FUROSEMIDE 40 MG/4 ML VIAL IV PUSH SCH (08:36)
[2017-04-22] MEDS: AMIODARONE 200 MG TAB PO SCH ×2 (08:36→21:08)
[2017-04-22] MEDS: POTASSIUM CHLORIDE 10 MEQ CONTROLLED RELEASE TAB PO SCH (08:36)
[2017-04-22] MEDS: ASPIRIN 81 MG CHEW TAB PO SCH (08:36)
[2017-04-22] MEDS: MULTIVITAMINS/MINERALS THERAPEUTIC TAB PO SCH (08:36)
[2017-04-22] MEDS: MAGNESIUM HYDROXIDE SUSP 30 ML CUP PO SCH (08:37)
[2017-04-22] MEDS: POLYETHYLENE GLYCOL 17 GM PKG PO SCH (08:38)
[2017-04-22] MEDS: DIGOXIN 0.25 MG TAB PO SCH (09:13)
--- NOTE | 2017-04-22 09:35 | PD.CAR.PN ---
CVT Progress Note Subjective/Hospital Course: 77/ female hx of Atrial fibrillation ( eliquis ) , Atrial myxoma, Acute diastolic ( congestive) heart failure HTN, COPD, palpatations, chronic hypoxemia on home 02 , non obstructive CAD by cath EF 45-50% admitted electively for surgery: Excisional biopsy of right atrial myxoma, MAZE procedure, MARCIE 04/18 04/19 Up in chair, on nasal cannula no pressors , stable for transfer to stepdown pulm toileting / nebs ezpap PT/ 04/20 remains on room air chest tube dc without difficulty pt developed bradycardia yesterday / HR 30's A paced yesterday at 80. pacer now at 45 as back up / HR high 40's BP stable BB and amiodarone dc yesterday Back in afib will need to resume eliquis once A wire dc 04/21 remains in afib rate 110, BP labile unable to restart BB, pacer turned off consult placed with Dr Lucia ( covering for Dr Anderson) start lovenox DVT prophy, resume eliquis once A wire removed 04/22 Clinically stable Awaiting cardiology input regarding atrial dysrhythmia management Ambulate Discharge planning On Lovenox Objective: Vital Signs Date Time Temp Pulse Resp B/P (MAP) Pulse Ox O2 Delivery O2 Flow Rate FiO2 04/22/17 06:00 117 04/22/17 05:00 109 04/22/17 04:00 117 04/22/17 04:00 97 Room Air 04/22/17 04:00 98.4 113 20 97/57 (70) 96 04/22/17 03:00 107 04/22/17 02:00 120 04/22/17 01:00 109 04/22/17 00:14 98.7 115 20 92/51 (65) 96 04/22/17 00:00 115 04/21/17 23:18 97 Room Air 04/21/17 23:00 119 04/21/17 22:00 126 04/21/17 21:00 130 04/21/17 20:00 116 04/21/17 20:00 98.6 118 20 93/51 (65) 97 04/21/17 20:00 96 Room Air 04/21/17 19:00 105 04/21/17 18:00 126 04/21/17 17:01 115 04/21/17 16:15 124 04/21/17 15:10 92 Room Air 04/21/17 15:10 98.4 101 18 95/63 (74) 92 04/21/17 15:00 128 04/21/17 14:29 127 04/21/17 13:20 93 04/21/17 13:08 122 04/21/17 12:15 119 04/21/17 11:07 98.3 110 18 100/61 (74) 95 04/21/17 11:07 92 Room Air 04/21/17 11:00 120 04/21/17 10:00 116 Result Diagram: 04/20/17 0530 04/21/17 0956 (1) Atrial myxoma Plan: afib rate 110, BP labile unable to resume BB / was on amiodarone at home no further junctional or bradycardia consult placed with cardiology start lovenox DVT prophy resume eliquis when A wire removed (2) chronic hypoxemia/ home 02 (3) COPD (chronic obstructive pulmonary disease) Plan: nebs, (4) Mitral regurgitation (5) Acute diastolic (congestive) heart failure Plan: on scheduled lasix (6) Hypertension Plan: home meds (7) Atrial fibrillation Plan: back in afib / resume eliquis on discharge Eliseo Grey MD Apr 22, 2017 09:35
[2017-04-22] MEDS: ACETAMINOPHEN 325 MG TAB PO PRN ×2 (11:42→18:05)
[2017-04-22] MEDS: ENOXAPARIN SODIUM 40 MG/0.4 ML SYRINGE SQ SCH (15:35)
[2017-04-22] MEDS ORDERED: AMIODARONE 150 MG/D5W 97 ML BOLUS 10 MINUTES IV ONE ×2 (19:30)
[2017-04-22] MEDS: AMIODARONE INJ 450 MG in D5W (EXCEL BAG) INJ 241 ML IV SCH (20:05)
--- NOTE | 2017-04-22 20:28 | PD.CARD.PN ---
Subjective Subjective Remarks Resting in bed without distress. Denies pain or needs. Feeling well. Afib 115 on monitor, pt asymptomatic. Objective Medications Current Medications Medications (Trade) Dose Ordered Sig/Mani Route Start Time Stop Time Status Last Admin (Aspirin Chew) 81 mg DAILY PO 04/19/17 09:00 04/22/17 08:36 (Protonix) 40 mg DAILY@06 PO 04/19/17 06:00 04/22/17 06:14 (Tylenol) 650 mg Q4H PRN PO 04/18/17 10:15 04/22/17 18:05 ([place] 5-325 Mg) 1 tab Q3H PRN PO 04/18/17 10:04/21/17 12:27 (Zofran Inj) 4 mg Q6H PRN IV PUSH 04/18/17 10:04/18/17 20:42 (Apresoline Inj) 10 mg Q4H PRN IV PUSH 04/18/17 10:15 (Duoneb Neb) 1 ampule Q2HR NEB PRN NEB 04/18/17 10:15 04/20/17 16:15 (Theragran M Tab) 1 tab DAILY PO 04/19/17 09:00 Future hold 04/22/17 08:36 (Milk Of Magnesia Liq) 30 ml DAILY PO 04/19/17 09:00 04/20/17 09:45 (Dulcolax Supp) 10 mg UNSCH PRN RECTAL 04/19/17 07:45 (Miralax) 17 gm DAILY PO 04/20/17 09:00 04/20/17 09:44 (Senokot) 8.6 mg HS PO 04/19/17 21:00 04/19/17 20:58 (Fleets Enema (Adult)) 133 ml UNSCH PRN RECTAL 04/19/17 07:45 (D50w (Vial) Inj) 50 ml UNSCH PRN IV PUSH 04/19/17 07:45 (Glucagon Inj) 1 mg UNSCH PRN OTHER 04/19/17 07:45 (NovoLOG SUPPLEMENTAL SCALE) 1 ACHS SQ 04/20/17 17:00 04/22/17 11:10 (Lasix Inj) 40 mg DAILY IV PUSH 04/21/17 09:00 04/22/17 08:36 (KCl) 30 meq DAILY PO 04/21/17 09:00 10/21/17 08:36 (Colace) 100 mg BID PRN PO 04/21/17 15:45 (Lovenox Inj) 40 mg Q24H SQ 04/21/17 16:00 04/22/17 15:35 (Lanoxin) 0.25 mg DAILY PO 04/22/17 09:00 04/22/17 09:13 (Cordarone) 200 mg BID PO 04/21/17 21:00 04/22/17 08:36 Amiodarone HCl 450 mg/Dextrose 250 ml @ 33.33 mls/ hr Q7H31M IV 04/22/17 19:15 04/22/17 20:05 Vital Signs / I&O Vital Signs Date Time Temp Pulse Resp B/P (MAP) Pulse Ox O2 Delivery O2 Flow Rate FiO2 04/22/17 20:05 118 98/60 04/22/17 20:05 118 98/60 04/22/17 19:03 18 04/22/17 18:00 115 04/22/17 17:20 118 04/22/17 16:11 119 04/22/17 15:00 93 Room Air 04/22/17 15:00 98.9 116 16 108/54 (72) 96 04/22/17 15:00 117 04/22/17 14:00 102 04/22/17 13:00 118 04/22/17 12:27 124 04/22/17 11:00 122 04/22/17 11:00 97 Room Air 04/22/17 11:00 98.4 130 16 97/60 (72) 97 04/22/17 10:00 94 04/22/17 10:00 130 04/22/17 09:00 114 04/22/17 08:00 124 04/22/17 07:00 94 Room Air 04/22/17 07:00 139 04/22/17 07:00 98.5 124 16 115/72 (86) 94 04/22/17 06:00 117 04/22/17 05:00 109 04/22/17 04:00 117 04/22/17 04:00 97 Room Air 04/22/17 04:00 98.4 113 20 97/57 (70) 96 04/22/17 03:00 107 04/22/17 02:00 120 04/22/17 01:00 109 04/22/17 00:14 98.7 115 20 92/51 (65) 96 04/22/17 00:00 115 04/21/17 23:18 97 Room Air 04/21/17 23:00 119 04/21/17 22:00 126 04/21/17 21:00 130 I/O 04/21/17 04/21/17 04/21/17 04/22/17 04/22/17 04/22/17 07:00 15:00 23:00 07:00 15:00 23:00 Intake Total 240 ml 960 ml 240 ml 960 ml Output Total 1000 ml 900 ml 900 ml Balance -760 ml 960 ml -660 ml 60 ml Intake Oral 240 ml 960 ml 240 ml 960 ml IV Total 0 ml Output Urine Total 1000 ml 900 ml 900 ml # Voids 4 5 # Bowel Movements 1 2 Physical Exam GENERAL: Awake, alert. No distress. SKIN: Warm and dry. Sternal dressing intact. HEAD: Atraumatic. Normocephalic. EYES: Pupils equal and round. No scleral icterus. No injection or drainage. ENT: No nasal bleeding or discharge. Mucous membranes pink and moist. NECK: Trachea midline. No JVD. CARDIOVASCULAR: Irregularly irregular rhythm. Rate 120's. RESPIRATORY: No accessory muscle use. Clear to auscultation, diminished bases. Breath sounds equal bilaterally. GASTROINTESTINAL: Abdomen soft, non-tender, nondistended. MUSCULOSKELETAL: Extremities without clubbing, cyanosis, or edema. No obvious deformities. NEUROLOGICAL: Awake and alert. No obvious cranial nerve deficits. Motor grossly within normal limits. Normal speech. PSYCHIATRIC: Appropriate mood and affect; insight and judgment normal. Laboratory Current Medications Medications (Trade) Dose Ordered Sig/Mani Route Start Time Stop Time Status Last Admin (Aspirin Chew) 81 mg DAILY PO 04/19/17 09:00 04/22/17 08:36 (Protonix) 40 mg DAILY@06 PO 04/19/17 06:00 04/22/17 06:14 (Tylenol) 650 mg Q4H PRN PO 04/18/17 10:04/22/17 18:05 ([place] 5-325 Mg) 1 tab Q3H PRN PO 04/18/17 10:04/21/17 12:27 (Zofran Inj) 4 mg Q6H PRN IV PUSH 04/18/17 10:15 04/18/17 20:42 (Apresoline Inj) 10 mg Q4H PRN IV PUSH 04/18/17 10:15 (Duoneb Neb) 1 ampule Q2HR NEB PRN NEB 04/18/17 10:15 04/20/17 16:15 (Theragran M Tab) 1 tab DAILY PO 04/19/17 09:00 Future hold 04/22/17 08:36 (Milk Of Magnesia Liq) 30 ml DAILY PO 04/19/17 09:00 04/20/17 09:45 (Dulcolax Supp) 10 mg UNSCH PRN RECTAL 04/19/17 07:45 (Miralax) 17 gm DAILY PO 04/20/17 09:00 04/20/17 09:44 (Senokot) 8.6 mg HS PO 04/19/17 21:00 04/19/17 20:58 (Fleets Enema (Adult)) 133 ml UNSCH PRN RECTAL 04/19/17 07:45 (D50w (Vial) Inj) 50 ml UNSCH PRN IV PUSH 04/19/17 07:45 (Glucagon Inj) 1 mg UNSCH PRN OTHER 04/19/17 07:45 (NovoLOG SUPPLEMENTAL SCALE) 1 ACHS SQ 04/20/17 17:00 04/22/17 11:10 (Lasix Inj) 40 mg DAILY IV PUSH 04/21/17 09:00 04/22/17 08:36 (KCl) 30 meq DAILY PO 04/21/17 09:00 04/22/17 08:36 (Colace) 100 mg BID PRN PO 04/21/17 15:45 (Lovenox Inj) 40 mg Q24H SQ 04/21/17 16:00 04/22/17 15:35 (Lanoxin) 0.25 mg DAILY PO 04/22/17 09:00 04/22/17 09:13 (Cordarone) 200 mg BID PO 04/21/17 21:00 04/22/17 08:36 Amiodarone HCl 450 mg/Dextrose 250 ml @ 33.33 mls/ hr Q7H31M IV 04/22/17 19:15 04/22/17 20:05 ASSESSMENT S/P Excisional biopsy of right atrial myxoma, MAZE procedure, MARCIE 04/18 Afib with RVR COPD MR Acute diastolic CHF Hypertension Will start amiodarone bolus and drip. Continue lovenox, digoxin. Will monitor. Vannesa Fernández Apr 22, 2017 20:28
[2017-04-22] MEDS: SENNOSIDES 8.6 MG TAB PO SCH (21:00)
[2017-04-22] MEDS: ACETAMINOPHEN/HYDROcodone 325 MG/5 MG TAB PO PRN (23:18)
[2017-04-23] VITALS (27 sets, daily range): BP systolic 107–124; BP diastolic 55–67; PULSE 85–115; RESP 14–18; TEMP 98.1–98.8; O2SAT 93–98
[2017-04-23] MEDS: AMIODARONE INJ 450 MG in D5W (EXCEL BAG) INJ 241 ML IV SCH ×3 (03:00→18:35)
[2017-04-23] MEDS: PANTOPRAZOLE SOD 40 MG DELAYED RELEASE TAB PO SCH (05:55)
[2017-04-23] MEDS: INSULIN ASPART SUPPLEMENTAL SCALE SQ SCH ×4 (08:00→20:22)
--- NOTE | 2017-04-23 08:46 | PD.CAR.PN ---
CVT Progress Note CVT: POD #: 5 Subjective/Hospital Course: 77/ female hx of Atrial fibrillation ( eliquis ) , Atrial myxoma, Acute diastolic ( congestive) heart failure HTN, COPD, palpatations, chronic hypoxemia on home 02 , non obstructive CAD by cath EF 45-50% admitted electively for surgery: Excisional biopsy of right atrial myxoma, MAZE procedure, MARCIE 04/18 04/19 Up in chair, on nasal cannula no pressors , stable for transfer to stepdown pul toileting / nebs ezpap PT/ 04/20 remains on room air chest tube dc without difficulty pt developed bradycardia yesterday / HR 30's A paced yesterday at 80. pacer now at 45 as back up / HR high 40's BP stable BB and amiodarone dc yesterday Back in afib will need to resume eliquis once A wire dc 04/21 remains in afib rate 110, BP labile unable to restart BB, pacer turned off consult placed with Dr Lucia ( covering for Dr Anderosn) start lovenox DVT prophy, resume eliquis once A wire removed 04/22 Clinically stable Awaiting cardiology input regarding atrial dysrhythmia management Ambulate Discharge planning On Lovenox 04/23/17 Continues in AFIB with VR ~110 - on amiodarone drip, digoxin per Dr. Valentino No complaints Patient states she feels great and would like to go home. Objective: Vital Signs Date Time Temp Pulse Resp B/P (MAP) Pulse Ox O2 Delivery O2 Flow Rate FiO2 04/23/17 08:00 102 04/23/17 07:30 98.2 106 14 124/60 (81) 98 04/23/17 07:00 108 04/23/17 06:00 100 04/23/17 05:00 100 04/23/17 04:00 97 04/23/17 03:00 86 04/23/17 03:00 98.2 97 16 107/67 (80) 95 04/23/17 03:00 89 107/54 04/23/17 02:00 88 04/23/17 01:00 98 04/23/17 00:21 16 04/23/17 00:00 94 04/22/17 23:00 98.2 107 18 107/54 (71) 96 04/22/17 23:00 104 04/22/17 22:00 104 04/22/17 21:00 100 04/22/17 20:21 21 04/22/17 20:05 118 98/60 04/22/17 20:05 118 98/60 04/22/17 20:00 104 04/22/17 19:03 18 04/22/17 19:00 98.2 108 20 97/52 (67) 98 04/22/17 19:00 108 04/22/17 18:00 115 04/22/17 17:20 118 04/22/17 16:11 119 04/22/17 15:00 93 Room Air 04/22/17 15:00 98.9 116 16 108/54 (72) 96 04/22/17 15:00 117 04/22/17 14:00 102 04/22/17 13:00 118 04/22/17 12:27 124 04/22/17 11:00 122 04/22/17 11:00 97 Room Air 04/22/17 11:00 98.4 130 16 97/60 (72) 97 04/22/17 10:00 94 04/22/17 10:00 130 04/22/17 09:00 114 Result Diagram: 04/20/17 0530 04/21/17 0956 Cardiovascular: IRR Telemetry: AFIB Pulmonary: CTA GI/: NABS, NT Incision: dry and intact Plan: Continues in AFIB on amiodarone drip, digoxin. Lovenox for anticoagulation Atrial pacing wires remain - will leave them in one more day unless Dr. Valentino clears them to come out. Encourage ambulation Discharge planning. She would benefit from a beta shelley - will discuss with Dr. Cosme in AM (1) Atrial myxoma Plan: afib rate 110, BP labile unable to resume BB / was on amiodarone at home no further junctional or bradycardia consult placed with cardiology start lovenox DVT prophy resume eliquis when A wire removed (2) chronic hypoxemia/ home 02 (3) COPD (chronic obstructive pulmonary disease) Plan: nebs, (4) Mitral regurgitation (5) Acute diastolic (congestive) heart failure Plan: on scheduled lasix (6) Hypertension Plan: home meds (7) Atrial fibrillation Plan: back in afib / resume eliquis on discharge Marielena Moraes MD Apr 23, 2017 08:46
[2017-04-23] MEDS: POLYETHYLENE GLYCOL 17 GM PKG PO SCH (09:00)
[2017-04-23] MEDS: MAGNESIUM HYDROXIDE SUSP 30 ML CUP PO SCH (09:00)
[2017-04-23] MEDS: DIGOXIN 0.25 MG TAB PO SCH (09:04)
[2017-04-23] MEDS: ASPIRIN 81 MG CHEW TAB PO SCH (09:04)
[2017-04-23] MEDS: AMIODARONE 200 MG TAB PO SCH ×2 (09:05→20:16)
[2017-04-23] MEDS: MULTIVITAMINS/MINERALS THERAPEUTIC TAB PO SCH (09:05)
[2017-04-23] MEDS: POTASSIUM CHLORIDE 10 MEQ CONTROLLED RELEASE TAB PO SCH (09:05)
[2017-04-23] MEDS: ACETAMINOPHEN 325 MG TAB PO PRN (11:30)
[2017-04-23] MEDS: ENOXAPARIN SODIUM 40 MG/0.4 ML SYRINGE SQ SCH (16:07)
[2017-04-23] MEDS: SENNOSIDES 8.6 MG TAB PO SCH (20:16)
[2017-04-23] MEDS: ACETAMINOPHEN/HYDROcodone 325 MG/5 MG TAB PO PRN (20:16)
[2017-04-24] VITALS (27 sets, daily range): BP systolic 95–149; BP diastolic 54–74; PULSE 82–114; RESP 16–19; TEMP 97.9–98.4; O2SAT 94–97
[2017-04-24] MEDS: ACETAMINOPHEN/HYDROcodone 325 MG/5 MG TAB PO PRN (03:06)
[2017-04-24] MEDS: PANTOPRAZOLE SOD 40 MG DELAYED RELEASE TAB PO SCH (05:40)
[2017-04-24] MEDS: INSULIN ASPART SUPPLEMENTAL SCALE SQ SCH ×4 (08:00→20:02)
[2017-04-24] MEDS: MAGNESIUM HYDROXIDE SUSP 30 ML CUP PO SCH (09:00)
[2017-04-24] MEDS: POLYETHYLENE GLYCOL 17 GM PKG PO SCH (09:00)
[2017-04-24] MEDS: ASPIRIN 81 MG CHEW TAB PO SCH (09:10)
[2017-04-24] MEDS: MULTIVITAMINS/MINERALS THERAPEUTIC TAB PO SCH (09:11)
[2017-04-24] MEDS: DIGOXIN 0.25 MG TAB PO SCH (09:11)
[2017-04-24] MEDS: AMIODARONE 200 MG TAB PO SCH ×3 (09:11→17:49)
--- NOTE | 2017-04-24 10:02 | PD.CAR.PN ---
CVT Progress Note Subjective/Hospital Course: 77/ female hx of Atrial fibrillation ( eliquis ) , Atrial myxoma, Acute diastolic ( congestive) heart failure HTN, COPD, palpatations, chronic hypoxemia on home 02 , non obstructive CAD by cath EF 45-50% admitted electively for surgery: Excisional biopsy of right atrial myxoma, MAZE procedure, MARCIE 04/18 04/19 Up in chair, on nasal cannula no pressors , stable for transfer to stepdown pulm toileting / nebs ezpap PT/ 04/20 remains on room air chest tube dc without difficulty pt developed bradycardia yesterday / HR 30's A paced yesterday at 80. pacer now at 45 as back up / HR high 40's BP stable BB and amiodarone dc yesterday Back in afib will need to resume eliquis once A wire dc 04/21 remains in afib rate 110, BP labile unable to restart BB, pacer turned off consult placed with Dr Lucia ( covering for Dr Anderson) start lovenox DVT prophy, resume eliquis once A wire removed 04/22 Clinically stable Awaiting cardiology input regarding atrial dysrhythmia management Ambulate Discharge planning On Lovenox 04/23/17 Continues in AFIB with VR ~110 - on amiodarone drip, digoxin per Dr. Valentino No complaints Patient states she feels great and would like to go home. 04/24 remains in afib rate 105-110, on digoxin , amiodarone gtt will hold lovenox for potential removal fo A wire await cardiology input resuem eliquis when A wire out Objective: Vital Signs Date Time Temp Pulse Resp B/P (MAP) Pulse Ox O2 Delivery O2 Flow Rate FiO2 04/24/17 08:00 114 04/24/17 07:00 98.3 103 19 139/63 (88) 96 04/24/17 07:00 96 04/24/17 06:00 94 04/24/17 05:00 90 04/24/17 04:00 91 04/24/17 03:10 96 04/24/17 03:10 98.4 96 18 129/60 (83) 94 04/24/17 03:00 104 04/24/17 02:00 98 04/24/17 01:00 90 04/24/17 00:00 85 04/23/17:00 96 04/23/17 23:00 99 04/23/17 23:00 98.4 99 18 111/55 (73) 96 04/23/17 22:00 104 04/23/17 21:00 94 04/23/17 20:00 96 04/23/17 20:00 89 04/23/17 20:00 98.1 89 18 123/61 (81) 96 04/23/17 19:56 97 21 04/23/17 19:00 90 04/23/17 18:35 89 108/65 04/23/17 18:00 108 04/23/17 17:00 85 04/23/17 16:00 96 04/23/17 15:00 98.8 104 18 113/67 (82) 98 04/23/17 15:00 89 04/23/17 14:00 98 04/23/17 13:00 113 04/23/17 12:00 104 04/23/17 11:00 98.8 104 18 113/67 (82) 98 04/23/17 11:00 115 04/23/17 10:17 112 04/23/17 10:00 112 Result Diagram: 04/20/17 0530 04/21/17 0956 Telemetry: Afib (1) Atrial myxoma Plan: afib rate 110, BP improved no further junctional or bradycardia cardiology following hod lovenox / possible removal of A wire DVT prophy resume eliquis when A wire removed (2) chronic hypoxemia/ home 02 Plan: stable (3) COPD (chronic obstructive pulmonary disease) Plan: nebs, (4) Mitral regurgitation (5) Hypertension Plan: home meds (6) Atrial fibrillation Plan: back in afib / resume eliquis on discharge Bernadette Barrett Apr 24, 2017 10:02
[2017-04-24 10:43] LABS: HEMATOCRIT 38.1 % (35.0-46.0); MEAN CORPUSCULAR HEMOGLOBIN 32.7 PG (27.0-34.0); PLATELET COUNT 254 TH/MM3 (150-450); RED BLOOD COUNT 3.97 MIL/MM3 (4.00-5.30); RED CELL DISTRIBUTION WIDTH 13.9 % (11.6-17.2); REVIEW FLAG FINAL; WHITE BLOOD COUNT 7.7 TH/MM3 (4.0-11.0)
[2017-04-24 11:04] LABS: BICARBONATE 25.8 MEQ/L (21.0-32.0); POTASSIUM 4.1 MEQ/L (3.5-5.1)
[2017-04-24] MEDS: ACETAMINOPHEN 325 MG TAB PO PRN ×2 (11:32→20:02)
[2017-04-24] MEDS ORDERED: DILTIAZEM-CD 180 MG CAP ER PO SCH (12:00)
[2017-04-24 18:20] LABS: BICARBONATE 27.9 MEQ/L (21.0-32.0); POTASSIUM 4.2 MEQ/L (3.5-5.1)
[2017-04-24] MEDS: APIXABAN 5 MG TABLET PO SCH (20:02)
[2017-04-24] MEDS: SENNOSIDES 8.6 MG TAB PO SCH (20:02)
[2017-04-25] VITALS (13 sets, daily range): BP systolic 100–111; BP diastolic 58–84; PULSE 77–110; RESP 16–18; TEMP 97.4–98.3; O2SAT 94–97
[2017-04-25] MEDS: RESP: ALBUTEROL 2.5 MG/IPRATROPIUM 0.5 MG NEB (PRN) NEB (04:00)
[2017-04-25] MEDS: PANTOPRAZOLE SOD 40 MG DELAYED RELEASE TAB PO SCH (05:56)
[2017-04-25] MEDS: INSULIN ASPART SUPPLEMENTAL SCALE SQ SCH (08:00)
[2017-04-25] MEDS ORDERED: AMIODARONE 200 MG TAB PO SCH (09:00)
[2017-04-25] MEDS: POLYETHYLENE GLYCOL 17 GM PKG PO SCH (09:00)
[2017-04-25] MEDS ORDERED: DILTIAZEM-CD 240 MG CAP ER PO SCH (09:00)
[2017-04-25] MEDS: MAGNESIUM HYDROXIDE SUSP 30 ML CUP PO SCH (09:00)
[2017-04-25] MEDS: MULTIVITAMINS/MINERALS THERAPEUTIC TAB PO SCH (09:34)
[2017-04-25] MEDS: ASPIRIN 81 MG CHEW TAB PO SCH (09:34)
[2017-04-25] MEDS: APIXABAN 5 MG TABLET PO SCH (10:17)
[2017-04-25] MEDS ORDERED: DOCU1CAP39 PO (10:38)
[2017-04-25] MEDS ORDERED: POLY17S PO (10:38)
[2017-04-25] MEDS ORDERED: HYDR-3516 PO (10:38)
[2017-04-25] MEDS ORDERED: THERM PO (10:38)
[2017-04-25] MEDS ORDERED: ASPI81CH25 PO (10:38)
--- NOTE | 2017-04-25 16:44 | HHI.DS ---
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 Diagnosis: Secondary (2) Hypertension Diagnosis: Principal ICD Codes: I10 - Essential (primary) hypertension Status: Chronic (3) Mitral regurgitation Diagnosis: Principal ICD Codes: I34.0 - Nonrheumatic mitral (valve) insufficiency Status: Chronic (4) Atrial fibrillation Diagnosis: Principal ICD Codes: I48.91 - Unspecified atrial fibrillation Status: Chronic Procedures Excisional biopsy of right atrial myxoma 04/18 MAZE procedure MARCIE Brief History Excisional biopsy of right atrial myxoma, MAZE procedure, MARCIE 04/18 hx of Atrial fibrillation ( eliquis ) , Atrial myxoma, Acute diastolic ( congestive) heart failure HTN, COPD, palpatations, chronic hypoxemia on home 02 , non obstructive CAD by cath EF 45-50% CBC/BMP: 04/24/17 1000 04/24/17 1740 Significant Findings Laboratory Tests Test 04/24/17 10:00 04/24/17 17:40 Red Blood Count 3.97 MIL/MM3 (4.00-5.30) Blood Urea Nitrogen 21 MG/DL (7-18) 22 MG/DL (7-18) Random Glucose 117 MG/DL (74-106) Sodium Level 135 MEQ/L (136-145) 133 MEQ/L (136-145) Estimat Glomerular Filtration Rate 70 ML/MIN (>89) 69 ML/MIN (>89) Imaging Last Impressions Chest X-Ray 04/19/17 0500 Signed Impressions: Service Date/Time: Wednesday, April 19, 2017 04:43 - CONCLUSION: 1. Left lower lobe atelectasis versus pneumonia. There has been no significant change when compared to the prior exam. Filipe Navarro MD PE at Discharge GENERAL: SKIN: Warm and dry. sternal incision intact and well approximated HEAD: Normocephalic. EYES: No scleral icterus. No injection or drainage. NECK: Supple, trachea midline. No JVD or lymphadenopathy. CARDIOVASCULAR: irregular rate and rhythm without murmurs, gallops, or rubs. RESPIRATORY: Breath sounds equal bilaterally. No accessory muscle use. GASTROINTESTINAL: Abdomen soft, non-tender, nondistended. MUSCULOSKELETAL: No cyanosis, or edema. BACK: Nontender without obvious deformity. No CVA tenderness. Hospital Course 04/19 Up in chair, on nasal cannula no pressors , stable [facility] toileting / nebs ezpap PT/ 04/20 remains on room air chest tube dc without difficulty pt developed bradycardia yesterday / HR 30's A paced yesterday at 80. pacer now at 45 as back up / HR high 40's BP stable BB and amiodarone dc yesterday Back in afib will need to resume eliquis once A wire dc 04/21 remains in afib rate 110, BP labile unable to restart BB, pacer turned off consult placed with Dr Lucia ( covering for Dr Anderson) start lovenox DVT prophy, resume eliquis once A wire removed 04/22 Clinically stable Awaiting cardiology input regarding atrial dysrhythmia management Ambulate Discharge planning On Lovenox 04/23/17 Continues in AFIB with VR ~110 - on amiodarone drip, digoxin per Dr. Valentino No complaints Patient states she feels great and would like to go home. 04/24 remains in afib rate 105-110, on digoxin , amiodarone gtt will hold lovenox for potential removal fo A wire await cardiology input resuem eliquis when A wire out 04/25 remains in afib, rate controlled, back on eliquis, amiodarone and cardizem stable for dc home prevena dressing removed Pt Condition on Discharge: Good Discharge Disposition: Disch w/ Home Health Serv Discharge Instructions DIET: Follow Instructions for: Heart Healthy Diet Activities you can perform: Shower Only-No Bath Activities to avoid: Strenuous Activity, Driving Additional Activity Instructio: no lifting > 8 lbs or gallon of milk Follow up Referrals: Cardiology with Eagle Cosme MD PCP Follow-up with Mukund Hernandez MD Surgical with Marielena Moraes MD New Orders: BASIC METABOLIC PROF - 2 Weeks CBC NO DIFF - 2 Weeks X-RAY CHEST PA & LAT - 2 Weeks New Medications: Aspirin (Aspirin Low Strength) 81 Mg Chew 81 MG PO DAILY for Blood Clot Prevention, #30 EA 2 Refills Docusate Sodium (Dok) 100 Mg Cap 100 MG PO DAILY PRN for CONSTIPATION, #30 CAP 0 Refills Hydrocodone-Acetaminophen (Hydrocodone-Acetaminophen) 5-325 mg Tab 1 TAB PO Q4H PRN for PAIN SCALE 1 TO 5, #40 TAB 0 Refills Multiple Vitamins W/ Minerals (Thera M Plus) 1 Tab 1 TAB PO DAILY for multi vitamin, #30 TAB 2 Refills Polyethylene Glycol 3350 Powder (Polyethylene Glycol 3350 Powder) 17 Gram Pow 17 GM PO DAILY for Constipation, #30 PACKET 0 Refills Continued Medications: Albuterol 8.5 GM Inh (Proair Hfa 8.5 GM Inh) 90 Mcg/Act Aer 1 PUFF INH Q4H PRN for SHORTNESS OF BREATH, #1 INHALER 0 Refills 108 mcg/actuation Albuterol Neb (Albuterol Neb) 2.5 Mg/3 Ml Neb 2.5 MG NEB Q4HR NEB PRN for SHORTNESS OF BREATH, #60 NEBULE 1 Refill Amiodarone (Amiodarone) 200 Mg Tab 200 MG PO DAILY for Regulate Heart Beat, TAB 0 Refills Apixaban (Eliquis) 5 Mg Tab 5 MG PO BID for afib, #60 TAB Diltiazem CD 24 HR (Cardizem CD 24 HR) 240 Mg Caper 240 MG PO DAILY for afib, #31 CAP Discontinued Medications: Atenolol (Atenolol) 25 Mg Tab 25 MG PO DAILY for Blood Pressure Management, TAB Bumetanide (Bumetanide) 1 Mg Tab 1 MG PO DAILY for chf, #31 TAB Oxygen (O2) (Oxygen (O2)) Device LITER DULCE.CANULA CONTINUOUS for Prevent Hypoxemia, #2 Oxygen Concentrator Portable Gaseous 2 L/min via Nasal Canula Continuous For 99 months Bernadette Barrett Apr 25, 2017 16:44
== END 2017-04-25 11:48 | disposition home health service (06) | DRG 228 ==
LOC: HSDI 05:11 → HCVI 11:20 → HCPC 04-19 09:00
PROVIDERS: ADMIT Thoracic Surgery (Cardiothoracic Vascular Surgery); ATTEND Thoracic Surgery (Cardiothoracic Vascular Surgery)
PROC: B246ZZ4 Ultrasonography of Right and Left Heart, Transesophageal (ICD-10-PCS; 2017-04-18)
PROC: 5A1221Z Performance of Cardiac Output, Continuous (ICD-10-PCS; 2017-04-18)
PROC: 02B70ZK Excision of Left Atrial Appendage, Open Approach (ICD-10-PCS; 2017-04-18)
PROC: 02H63JZ Insertion of Pacemaker Lead into Right Atrium, Percutaneous Approach (ICD-10-PCS; 2017-04-18)
PROC: 02580ZZ Destruction of Conduction Mechanism, Open Approach (ICD-10-PCS; principal; 2017-04-18 07:13)
PROC: 02B Heart and Great Vessels, Excision (ICD-10-PCS; 2017-04-18 07:13)
DX: I48.91 Unspecified atrial fibrillation (principal); I50.33 Acute on chronic diastolic (congestive) heart failure; J44.9 Chronic obstructive pulmonary disease, unspecified; Z99.81 Dependence on supplemental oxygen; I34.0 Nonrheumatic mitral (valve) insufficiency; D15.1 Benign neoplasm of heart; I11.0 Hypertensive heart disease with heart failure; I25.10 Atherosclerotic heart disease of native coronary artery without angina pectoris; R09.02 Hypoxemia; Z96.641 Presence of right artificial hip joint; Z96.651 Presence of right artificial knee joint; R00.1 Bradycardia, unspecified
CPT/HCPCS: 71010; 80048; 82948; 83735; 84100; 85025; 85027; 86850; 86900; 86901; 86920; 88305; 93005; 93318; 94002; 94003; 94150; 94640; 94664; 94667; 94668; J0131; J0282; J0690; J1160; J1644; J1650; J1815; J1817; J1940; J2150; J2370; J2405; J2720; J2930; J3370; J3475; J3480; J7040; J7060; J7120; P9047

== ENCOUNTER 2017-05-16 14:04 | Emergency (ER) | payer MEDICARE, OTHER ==
[~2017-05-16 14:04] MED LIST changes: +ASPI81CH25 PO; -ATEN25TA PO; -BUME1TAB PO; +DOCU1CAP39 PO; +HYDR-3516 PO; -OXYGENDME NAS.CANULA; +POLY17S PO; -POTA-163 PO; -SPIR25TA PO; +THERM PO
[2017-05-16 14:07] VITALS: BP 164/72; PULSE 86; RESP 16; TEMP 97.8; O2SAT 99
[2017-05-16] MEDS ORDERED: POTA-163 PO (15:27)
[2017-05-16] MEDS ORDERED: BUME1TAB PO (15:27)
--- NOTE | 2017-05-16 15:28 | RADRPT ---
EXAM DATE/TIME: 05/16/2017 14:57 [facility] COMPARISON: CHEST SINGLE AP, April 19, 2017, 4:43. CHEST PA & LAT, April 06, 2017, 13:44. INDICATIONS : Chest and back pain, short of breath MEDICAL HISTORY : Chronic obstructive pulmonary disease. Congestive heart failure. Hypertension. A-fib, emphysema SURGICAL HISTORY : Cholecystectomy. section. Appendectomy. tumor removed from artrium ENCOUNTER: Initial ACUITY: 1 week PAIN SCORE: 10/10 LOCATION: Bilateral chest FINDINGS: PA and lateral views of the chest show mild cardiomegaly. There is a focal area of loculated fluid in volving the minor fissure. This is a new finding. Left lung is clear. Median sternotomy wires. Tiny r ight effusion blunts the costophrenic angle laterally. Diffuse osteopenia. Exaggerated kyphosis to th e thoracic spine. CONCLUSION: 1. Tiny right effusion with loculated fluid involving the minor fissure as well. No infiltrate seen. 2. Cardiomegaly. Kaushik Bah Jr., MD on May 16, 2017 at 15:25 Board Certified Radiologist. This report was verified electronically.
[2017-05-16 15:58] LABS: AUTOMATED NEUTROPHIL # 3.4 TH/MM3 (1.8-7.7); BASOPHIL # 0.1 TH/MM3 (0-0.2); BASOPHIL % 0.8 % (0.0-2.0); EOSINOPHIL # 0.5 TH/MM3 (0-0.4); HEMATOCRIT 36.8 % (35.0-46.0); HEMO FLAGS DIFF FINAL; LYMPH % 24.5 % (9.0-44.0); LYMPHOCYTE # 1.6 TH/MM3 (1.0-4.8); MEAN CELL VOLUME 95.8 FL (80.0-100.0); MEAN CORPUSCULAR HEMOGLOBIN 32.1 PG (27.0-34.0); MEAN CORPUSCULAR HGB CONC 33.5 % (32.0-36.0); NEUT % 52.7 % (16.0-70.0); PLATELET COUNT 261 TH/MM3 (150-450); RED BLOOD COUNT 3.84 MIL/MM3 (4.00-5.30); RED CELL DISTRIBUTION WIDTH 15.4 % (11.6-17.2); WHITE BLOOD COUNT 6.5 TH/MM3 (4.0-11.0)
[2017-05-16 16:10] LABS: BICARBONATE 34.1 MEQ/L (21.0-32.0); POTASSIUM 3.4 MEQ/L (3.5-5.1)
[2017-05-16 16:20] VITALS: BP 158/87; PULSE 89; RESP 16; O2SAT 97
--- NOTE | 2017-05-16 16:25 | RADRPT ---
EXAM DATE/TIME: 05/16/2017 15:42 [facility] COMPARISON: No previous studies available for comparison. INDICATIONS : Low back pain for one month. RADIATION DOSE: 25.21 CTDIvol (mGy) MEDICAL HISTORY : Cardiovascular disease. Congestive heart failure. Hypertension.Skin cancer, chest tumor. SURGICAL HISTORY : Appendectomy. Cholecystectomy. ENCOUNTER: Initial ACUITY: 1 month PAIN SCALE: 5/10 LOCATION: Bilateral lower back. TECHNIQUE: Volumetric scanning of the lumbar spine was performed. Multiplanar reconstructions in the sagittal, coronal and oblique axial planes were performed. Using automated exposure control and adjustment of the mA and/or kV according to patient size, radiation dose was kept as low as reasonably achievable t o obtain optimal diagnostic quality images. DICOM format image data is available electronically for review and comparison. FINDINGS: VERTEBRAE: Normal vertebral body height. ALIGNMENT: There is 4 mm of anterolisthesis of L4 on L5. Mild dextroscoliosis is present. T12-L1: No disc herniation, canal stenosis, or neural foraminal stenosis is identified. L1-L2: There is a mild diffuse disc bulge largest in a left paracentral and foraminal location. No spinal ca nal stenosis is present. There is mild left neural foraminal narrowing. L2-L3: There is a mild diffuse disc bulge with mild facet and ligamentum flavum hypertrophy. No canal stenos is is appreciated. There is mild left neural foraminal stenosis. L3-L4: There is a mild diffuse disc bulge. Severe facet hypertrophy is present. There is no canal stenosis. There is mild left neural foraminal narrowing. L4-L5: Decreased disc height with a diffuse disc bulge and severe facet hypertrophy, right greater than left . There is no spinal canal stenosis. There is mild left and moderate right neural foraminal narrowing . L5-S1: No disc herniation, canal stenosis, or neural foraminal stenosis. There is moderate facet hypertrophy bilaterally. Paraspinous structures demonstrate small right pleural effusion and severe atherosclerotic disease. T here is a 15 mm left mid renal cyst. CONCLUSION: 1. Levoscoliosis with multilevel degenerative disc disease and facet arthrosis. Grade 1 anterolisthes is is present at L4-L5. No spinal canal stenosis is identified. However, there are areas of mild to m oderate neural foraminal narrowing, as above. 2. Small right pleural effusion. Colin Shelton MD on May 16, 2017 at 16:19 Board Certified Radiologist. This report was verified electronically.
--- NOTE | 2017-05-16 17:04 | PD ---
HPI Chief Complaint: Cardiac Complaint Time Seen by Provider: 15:00 Travel History International Travel<30 days: No Contact w/Intl Traveler<30days: No Traveled to known affect area: No History of Present Illness HPI This is a 77-year-old female who in mid April had a Maze procedure with resection of an atrial myxoma by Dr. Moraes. She reports ever since the procedure she's had low back pain, intermittent, worse with laying flat, moderate severity, improved with walking around. Patient denies any associated chest pain or trouble breathing. She has been having trouble with intermittent atrial fibrillation since the procedure which her doctor is aware of. 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 PFSH Past Medical History Arthritis: Yes Asthma: No Autoimmune Disease: No Blood Disorders: No Anxiety: No Depression: No Heart Rhythm Problems: Yes (afib with rvr) Cancer: Yes (SKIN) Cardiovascular Problems: Yes High Cholesterol: No Chemotherapy: No Chest Pain: No Congestive Heart Failure: Yes (this admission) COPD: No Cerebrovascular Accident: No Diabetes: No Diminished Hearing: No Endocrine: No Gastrointestinal Disorders: No GERD: No Glaucoma: Yes (BILAT) Genitourinary: No Headaches: No Hepatitis: No Hiatal Hernia: No Hypertension: Yes Immune Disorder: No Implanted Vascular Access Dvce: Yes Kidney Stones: No Musculoskeletal: Yes (OA) Neurologic: No Psychiatric: No Reproductive: No Respiratory: Yes (COPD) Integumentary: No Migraines: No Myocardial Infarction: No Radiation Therapy: No Renal Failure: No Seizures: No Sickle Cell Disease: No Sleep Apnea: No Thyroid Disease: No Ulcer: No Tetanus Vaccination: < 5 Years Past Surgical History Abdominal Surgery: Yes (GALL BLADDER) AICD: No Appendectomy: Yes Arteriovenous Shunt: No Cardiac Surgery: No Cholecystectomy: Yes Ear Surgery: No Endocrine Surgery: No Eye Surgery: Yes (CATARACTS REMOVED AND LENSE PLACEMENT BILATERAL 2004) Genitourinary Surgery: No Gynecologic Surgery: Yes (TUBAL LIGATION, PARTIAL HYSTERECTOMY) Insulin Pump: No Joint Replacement: Yes (R KNEE REPLACEMENT, RIGHT HIP) Neurologic Surgery: No Oral Surgery: No Pacemaker: No Thoracic Surgery: No Other Surgery: Yes Social History Alcohol Use: Yes (2 DRINKS A DAY) Tobacco Use: Yes (1 pack per day) Substance Use: No Allergies-Medications (Allergen,Severity, Reaction): Coded Allergies: codeine (Verified Adverse Reaction, Severe, Nausea/Vomiting, 05/16/17) Uncoded Allergies: metal (Allergy, Mild, itching, 04/21/17) Reported Meds & Prescriptions Reported Meds & Active Scripts Active Thera M Plus (Multivitamins/Minerals Therapeutic) 1 Tab 1 Tab PO DAILY Eliquis (Apixaban) 5 Mg Tab 5 Mg PO BID Albuterol Neb (Albuterol Sulfate) 2.5 Mg/3 Ml Neb 2.5 Mg NEB Q4HR NEB PRN Reported Potassium Chloride ER (Potassium Chloride) 20 Meq Tab 20 Meq PO DAILY Bumetanide 1 Mg Tab 1 Mg PO DAILY Proair Hfa 8.5 GM Inh (Albuterol Sulfate) 90 Mcg/Act Aer 1 Puff INH Q4H PRN 108 mcg/actuation Review of Systems Except as stated in HPI: all other systems reviewed are Neg Physical Exam Narrative GENERAL:Well appearing, no acute distress SKIN: Focused skin assessment warm and dry. HEAD: Atraumatic. Normocephalic. EYES: Pupils equal and round. No injection or drainage. ENT: Moist mucous membranes NECK: Trachea midline. CARDIOVASCULAR: Regular rate and rhythm. No murmur appreciated. Well healing sternotomy scar. 2+ bilateral pitting edema in the lower extremities. RESPIRATORY: Clear to auscultation. Breath sounds equal bilaterally. GASTROINTESTINAL: Abdomen soft, non-tender, nondistended. MUSCULOSKELETAL: Tender to palpation over the mid lumbar spine with paraspinal tenderness bilaterally NEUROLOGICAL: Awake and alert. No obvious cranial nerve deficits. Moving all extremities. PSYCHIATRIC: Appropriate mood and affect; insight and judgment normal. Data Data Last Documented VS Vital Signs Date Time Temp Pulse Resp B/P (MAP) Pulse Ox O2 Delivery O2 Flow Rate FiO2 05/16/17 16:20 89 16 158/87 (110) 97 Nasal Cannula 2.00 05/16/17 14:07 97.8 Orders Orders Electrocardiogram (05/16/17 14:26) Basic Metabolic Panel (Bmp) (05/16/17 14:26) B-Type Natriuretic Peptide (05/16/17 14:26) Complete Blood Count With Diff (05/16/17 14:26) Chest, Pa & Lat (05/16/17 14:26) Urinalysis - C+S If Indicated (05/16/17 15:27) Ed Poc Ultrasound (05/16/17 ) Ct Lumb Spine W/O Contrast (05/16/17 ) Labs Laboratory Tests Test 05/16/17 15:30 White Blood Count 6.5 TH/MM3 Red Blood Count 3.84 MIL/MM3 Hemoglobin 12.3 GM/DL Hematocrit 36.8 % Mean Corpuscular Volume 95.8 FL Mean Corpuscular Hemoglobin 32.1 PG Mean Corpuscular Hemoglobin Concent 33.5 % Red Cell Distribution Width 15.4 % Platelet Count 261 TH/MM3 Mean Platelet Volume 7.2 FL Neutrophils (%) (Auto) 52.7 % Lymphocytes (%) (Auto) 24.5 % Monocytes (%) (Auto) 14.0 % Eosinophils (%) (Auto) 8.0 % Basophils (%) (Auto) 0.8 % Neutrophils # (Auto) 3.4 TH/MM3 Lymphocytes # (Auto) 1.6 TH/MM3 Monocytes # (Auto) 0.9 TH/MM3 Eosinophils # (Auto) 0.5 TH/MM3 Basophils # (Auto) 0.1 TH/MM3 CBC Comment DIFF FINAL Differential Comment Blood Urea Nitrogen 19 MG/DL Creatinine 1.10 MG/DL Random Glucose 90 MG/DL Calcium Level 8.8 MG/DL Sodium Level 141 MEQ/L Potassium Level 3.4 MEQ/L Chloride Level 102 MEQ/L Carbon Dioxide Level 34.1 MEQ/L Anion Gap 5 MEQ/L Estimat Glomerular Filtration Rate 48 ML/MIN B-Type Natriuretic Peptide 253 PG/ML MDM Medical Decision Making Medical Screen Exam Complete: Yes Emergency Medical Condition: Yes Interpretation(s) Afebrile, no tachycardia, hypertensive No leukocytosis Mild hypokalemia BNP is 253 Chest x-ray: Tiny right effusion CT of the lumbar spine: Degenerative disc disease, no spinal stenosis Differential Diagnosis Lumbar compression fracture, lumbar sprain, degenerative disc disease, pericardial effusion Narrative Course This is a 77-year-old female who presents to the emergency department with lower back pain that's been present ever since her surgery. It's musculoskeletal in nature and on physical exam she is focally tender along the vertebral bodies and paraspinal muscles of the low back. Labs were obtained which were reassuring. CT of the lumbar spine demonstrates degenerative disc disease with no acute compression fracture. I think she is safe to follow-up with a primary care physician and perhaps engage in physical therapy for her low back. I don't think this is anything to do with her recent cardiothoracic surgery except that maybe she was more immobile than normal and this exacerbated her pain. I discussed this with Dr. Moraes and he agrees that it's unlikely to be related to a surgical complication. I think patient is safe for discharge. Procedures Procedure Narrative [id number] ultrasound: Cardiac silhouette was visualized in the subxiphoid view with no evidence of pericardial effusion Diagnosis Primary Impression: Lumbar degenerative disc disease Patient Instructions: General Instructions Additional Instructions: If you develop weakness of your legs, difficulty walking, numbness of your legs or your genital or rectal area, loss of your bowel or bladder, or difficulty urinating return to the emergency department immediately. Followup with your primary care physician in one week if your symptoms have not improved. Med/Other Pt SpecificInfo: Prescription(s) given Scripts Lidocaine Patch 12 HR (Lidocaine Patch 12 HR) 5 % Patch 1 PATCH TOPICAL DAILY Y for PAIN, #1 BOX 0 Refills Remove patch after 12 hours Prov: Susana Dunbar MD 05/16/17 Disposition: 01 DISCHARGE HOME Condition: Stable Susana Dunbar MD May 16, 2017 17:04
[2017-05-16] MEDS ORDERED: LIDO1PAD52 TOPICAL (17:15)
[2017-05-16 17:44] LABS: BLOOD, URINE NEG (NEG); COMMENT (UR) CULT NOT INDICATED; CULTURE IF INDICATED CULT NOT INDICATED; GLUCOSE,URINE NEG (NEG); KETONE, URINE NEG (NEG); NITRITE,URINE NEG (NEG); URINE COLOR YELLOW (YELLW/STRAW)
[2017-05-16 18:31] VITALS: BP 152/76
--- NOTE | 2017-05-16 21:33 | EKG ---
Date Performed: 05/16/2017 Time Performed: 15:13:50 PTAGE: 77 years EKG: Sinus rhythm WITH OCCASIONAL SUPRAVENTRICULAR PREMATURE COMPLEXES POSSIBLE ANTERIOR MYOCARDIAL INFARCTION BORDERL INE ECG PREVIOUS TRACING : 04/20/2017 14.57 Compared to the previous tracing atrial pacing no longer pr esent DOCTOR: Mansoor Piedra Interpretating Date/Time 05/16/2017 21:32:50
== END 2017-05-16 18:33 | disposition home or self-care (01) ==
LOC: NEPC 14:04
DX: M51.36 Other intervertebral disc degeneration, lumbar region (principal); M41.9 Scoliosis, unspecified; J90 Pleural effusion, not elsewhere classified; E87.6 Hypokalemia; I48.91 Unspecified atrial fibrillation; I51.7 Cardiomegaly; I11.0 Hypertensive heart disease with heart failure; I50.9 Heart failure, unspecified; J44.9 Chronic obstructive pulmonary disease, unspecified
CPT/HCPCS: 71020; 72131; 80048; 81001; 83880; 85025; 93005

== ENCOUNTER → 2017-09-01 | Outpatient (CLI) | payer MEDICARE, OTHER ==
[~2017-09-01] MED LIST changes: -AMIO200T PO; -ASPI81CH25 PO; +BUME1TAB PO; -CARD240C6 PO; -DOCU1CAP39 PO; -HYDR-3516 PO; +LIDO1PAD52 TOPICAL; -POLY17S PO; +POTA-163 PO
== END ==
LOC: HRSP 09:47
PROVIDERS: ATTEND Internal Medicine Interventional Cardiology
DX: R06.02 Shortness of breath (principal)
CPT/HCPCS: 36600; 82805; 94060; 94726; 94729